=== PATIENT | male | born 1930 | race Caucasian/White ===

== ENCOUNTER 2017-08-29 14:25 | Observation (INO) | payer MEDICARE, OTHER ==
[2017-08-29] VITALS (7 sets, daily range): BP systolic 117–155; BP diastolic 51–68; PULSE 71–86; RESP 17–19; TEMP 97.6–98.1; O2SAT 91–99
[~2017-08-29] VITALS: Ht 182.9 cm; Wt 100.0 kg
[~2017-08-29 14:25] MED LIST: ASPI81TA82 PO; METO50TA PO; STOO100C PO
[2017-08-29] MEDS ORDERED: VENTAER INH (14:57)
[2017-08-29] MEDS ORDERED: FURO1TAB62 PO (14:57)
[2017-08-29] MEDS ORDERED: SODIUM CHLORIDE 0.9% FLUSH 10 ML FLUSH IVF PRN (15:00)
--- NOTE | 2017-08-29 15:13 | PD ---
HPI Chief Complaint: Edema Time Seen by Provider: 14:56 Travel History International Travel<30 days: No Contact w/Intl Traveler<30days: No Traveled to known affect area: No History of Present Illness HPI Patient sees Dr. Man is a primary care doctor and the learning and development administrator is Dr. CONCEPCION..... Patient comes in complaining of increased swelling to bilateral lower extremities as well as shortness of breath over the past 3 days or so but have not improved despite the fact that Dr. Man started him on Lasix. Patient denies any alleviating or aggravating factors. Patient denies any associated factors such as fever cough chest pain abdominal pain back pain nausea vomiting or diarrhea at this time. Allergies no known drug allergies Past medical and surgical history consistent with CABG, bovine aortic valve replacement, left inguinal hernia repair, AAA, congestive heart failure, PFSH Past Medical History AAA: Yes Cancer: Yes (BASAL CELL) Cardiovascular Problems: Yes (HX OF LEAKY AORTIC VALVE) Chemotherapy: No Congestive Heart Failure: Yes Diabetes: No Diminished Hearing: No Endocrine: No Gastrointestinal Disorders: Yes (GALLSTONES) Genitourinary: No Hepatitis: No Hiatal Hernia: No Hypertension: Yes Immune Disorder: No Kidney Stones: Yes Musculoskeletal: No Neurologic: No Psychiatric: No Respiratory: No Immunizations Current: Yes Radiation Therapy: No Tetanus Vaccination: < 5 Years Influenza Vaccination: No Past Surgical History Abdominal Aneurysm Repair: Yes Abdominal Surgery: Yes (LEFT INGUINAL HERNIA) Body Medical Devices: BOVINE AORTIC VALVE, STERNAL INFECTION Cardiac Surgery: Yes (AVR) Ear Surgery: No Eye Surgery: Yes (MARBELLA CATARACTS) Genitourinary Surgery: Yes (LITHOTRIPSY, STONES REMOVED) Gynecologic Surgery: No Oral Surgery: Yes (TONSILLECTOMY) Thoracic Surgery: Yes (DEBRIDED CHEST INFECTION, STERNAL WIRES OUT) Tonsillectomy: Yes Valve Replacement: Yes (BOVINE AORTIC VALVE REPLACEMENT) Other Surgery: Yes (HYDROCELE) Social History Alcohol Use: Yes (WINE DAILY) Tobacco Use: No (QUIT 30 + YEARS AGO) Substance Use: No Allergies-Medications (Allergen,Severity, Reaction): Coded Allergies: No Known Allergies (Unverified Adverse Reaction, Unknown, 08/29/17) Reported Meds & Prescriptions Reported Meds & Active Scripts Active Reported Ventolin Hfa 18 GM Inh (Albuterol Sulfate) 90 Mcg/Act Aer 2 Puff INH Q4-6H PRN Lasix (Furosemide) 20 Mg Tab 20 Mg PO DAILY Review of Systems Except as stated in HPI: all other systems reviewed are Neg General / Constitutional: No: Fever Eyes: No: Visual changes HENT: No: Headaches Cardiovascular: Positive: Edema Respiratory: Positive: Shortness of Breath Gastrointestinal: No: Abdominal Pain Genitourinary: No: Dysuria Musculoskeletal: No: Pain Skin: No Rash Neurologic: No: Weakness Psychiatric: No: Depression Endocrine: No: Polydipsia Hematologic/Lymphatic: No: Easy Bruising Physical Exam Narrative GENERAL: SKIN: Warm and dry. HEAD: Atraumatic. Normocephalic. EYES: Pupils equal and round. No scleral icterus. No injection or drainage. ENT: No nasal bleeding or discharge. Mucous membranes pink and moist. NECK: Trachea midline. No JVD. CARDIOVASCULAR: Regular rate and rhythm. Holosystolic murmur 3 out of 6 RESPIRATORY: No accessory muscle use. Patient has good tidal volume however he has bilateral wheezing GASTROINTESTINAL: Abdomen soft, non-tender, nondistended. MUSCULOSKELETAL: Extremities without clubbing, cyanosis, or edema. No obvious deformities. NEUROLOGICAL: Awake and alert. No obvious cranial nerve deficits. Motor grossly within normal limits. Five out of 5 muscle strength in the arms and legs. Normal speech. PSYCHIATRIC: Appropriate mood and affect; insight and judgment normal. Data Data Last Documented VS Vital Signs Date Time Temp Pulse Resp B/P (MAP) Pulse Ox O2 Delivery O2 Flow Rate FiO2 08/29/17 15:03 98 Room Air 08/29/17 15:02 79 19 08/29/17 14:27 97.6 Orders Orders Ckmb (Isoenzyme) Profile (08/29/17 14:56) Complete Blood Count With Diff (08/29/17 14:56) Comprehensive Metabolic Panel (08/29/17 14:56) Prothrombin Time / Inr (Pt) (08/29/17 14:56) Act Partial Throm Time (Ptt) (08/29/17 14:56) Troponin I (08/29/17 14:56) Lipase (08/29/17 14:56) Chest, Single Ap (08/29/17 14:56) Ecg Monitoring (08/29/17 14:56) Iv Access Insert/Monitor (08/29/17 14:56) Oximetry (08/29/17 14:56) Oxygen Administration (08/29/17 14:56) Sodium Chloride 0.9% Flush (Ns Flush) (08/29/17 15:00) Furosemide Inj (Lasix Inj) (08/29/17 15:15) Methylprednisolone So Succ Inj (Solumedr (08/29/17 15:15) Albuterol-Ipratropium Neb (Duoneb Neb) (08/29/17 15:15) CKMB (08/29/17 15:05) CKMB% (08/29/17 15:05) Aspirin Chew (Aspirin Chew) (08/29/17 16:15) Nitroglycerin 2% Oint (Nitroglycerin 2% (08/29/17 16:15) Enoxaparin Inj (Lovenox Inj) (08/29/17 16:15) B-Type Natriuretic Peptide (08/29/17 16:26) Labs Laboratory Tests Test 08/29/17 15:05 White Blood Count 3.8 TH/MM3 Red Blood Count 4.42 MIL/MM3 Hemoglobin 14.0 GM/DL Hematocrit 40.5 % Mean Corpuscular Volume 91.6 FL Mean Corpuscular Hemoglobin 31.6 PG Mean Corpuscular Hemoglobin Concent 34.5 % Red Cell Distribution Width 14.0 % Platelet Count 114 TH/MM3 Mean Platelet Volume 9.7 FL Neutrophils (%) (Auto) 60.5 % Lymphocytes (%) (Auto) 23.8 % Monocytes (%) (Auto) 10.4 % Eosinophils (%) (Auto) 4.6 % Basophils (%) (Auto) 0.7 % Neutrophils # (Auto) 2.3 TH/MM3 Lymphocytes # (Auto) 0.9 TH/MM3 Monocytes # (Auto) 0.4 TH/MM3 Eosinophils # (Auto) 0.2 TH/MM3 Basophils # (Auto) 0.0 TH/MM3 CBC Comment DIFF FINAL Differential Comment Prothrombin Time 10.0 SEC Prothromb Time International Ratio 1.0 RATIO Activated Partial Thromboplast Time 28.2 SEC Blood Urea Nitrogen 33 MG/DL Creatinine 1.44 MG/DL Random Glucose 79 MG/DL Total Protein 7.6 GM/DL Albumin 3.4 GM/DL Calcium Level 8.5 MG/DL Alkaline Phosphatase 67 U/L Aspartate Amino Transf (AST/SGOT) 37 U/L Alanine Aminotransferase (ALT/SGPT) 21 U/L Total Bilirubin 0.4 MG/DL Sodium Level 138 MEQ/L Potassium Level 4.3 MEQ/L Chloride Level 103 MEQ/L Carbon Dioxide Level 29.0 MEQ/L Anion Gap 6 MEQ/L Estimat Glomerular Filtration Rate 47 ML/MIN Total Creatine Kinase 169 U/L Creatine Kinase MB 2.7 NG/ML Troponin I 0.19 NG/ML Lipase 192 U/L MDM Medical Decision Making Medical Screen Exam Complete: Yes Emergency Medical Condition: Yes Medical Record Reviewed: Yes Interpretation(s) EKG: Shows a ectopic rhythm at 76 rate, normal intervals, no ST elevation pattern noted will repeat EKG in the event that Leads are reversed. Differential Diagnosis Possible pulmonary edema due to CHF versus kidney failure versus liver failure Narrative Course The patient's coagulation profile is within normal limits, CBC is normal and does not show any evidence of leukocytosis or anemia. CMP shows a renal insufficiency creatinine 1.44 and decreased GFR of 47, however patient's liver functions were within normal limits, however the troponin is 0.19 which is elevated and abnormal. Patient will be admitted for further evaluation of this elevation of troponin Critical Care Narrative CRITICAL CARE NOTE: With evaluation of the patient, labs, EKG, receipt of radiologic studies, administration of medications, reevaluation the patient and discussion of the patient with the admitting physicians, the total critical care time was [30] minutes. Time to perform other separately billable procedures was not included in the critical care time. Diagnosis Primary Impression: BLE PERIPHERAL EDEMA Additional Impression: NONSTEMI Admitting Information Admitting Physician Requests: Observation Barry Piper MD Aug 29, 2017 15:13
[2017-08-29] MEDS ORDERED: FUROSEMIDE 40 MG/4 ML VIAL IVP ONE (15:15)
[2017-08-29] MEDS ORDERED: methylPREDNISolone SOD SUCC 125 MG/2 ML VIAL IV PUSH ONE (15:15)
[2017-08-29] MEDS: RESP: ALBUTEROL 2.5 MG/IPRATROPIUM 0.5 MG NEB (SCH) INH (15:30)
[2017-08-29 15:35] LABS: AUTOMATED NEUTROPHIL # 2.3 TH/MM3 (1.8-7.7); BASOPHIL % 0.7 % (0.0-2.0); EOSINOPHIL # 0.2 TH/MM3 (0-0.4); EOSINOPHIL % 4.6 % (0.0-4.0); HEMATOCRIT 40.5 % (39.0-51.0); LYMPH % 23.8 % (9.0-44.0); LYMPHOCYTE # 0.9 TH/MM3 (1.0-4.8); MEAN CELL VOLUME 91.6 FL (80.0-100.0); MEAN CORPUSCULAR HEMOGLOBIN 31.6 PG (27.0-34.0); MEAN CORPUSCULAR HGB CONC 34.5 % (32.0-36.0); MEAN PLATELET VOLUME 9.7 FL (7.0-11.0); MONO % 10.4 % (0.0-8.0); MONOCYTE # 0.4 TH/MM3 (0-0.9); NEUT % 60.5 % (16.0-70.0); PLATELET COUNT 114 TH/MM3 (150-450); RED BLOOD COUNT 4.42 MIL/MM3 (4.50-5.90); WHITE BLOOD COUNT 3.8 TH/MM3 (4.0-11.0)
[2017-08-29 15:58] LABS: ALBUMIN 3.4 GM/DL (3.4-5.0); ALT (GPT) 21 U/L (12-78); AST (GOT) 37 U/L (15-37); BLOOD UREA NITROGEN 33 MG/DL (7-18); CALCIUM 8.5 MG/DL (8.5-10.1); CHLORIDE 103 MEQ/L (98-107); CREATININE 1.44 MG/DL (0.60-1.30); GLOMERULAR FILTRATION RATE 47 ML/MIN (>89); GLUCOSE,RANDOM 79 MG/DL (74-106); SODIUM (NA) 138 MEQ/L (136-145)
[2017-08-29 16:02] LABS: ALKALINE PHOSPHATASE 67 U/L (45-117); TOTAL BILIRUBIN ADULT 0.4 MG/DL (0.2-1.0); TOTAL PROTEIN 7.6 GM/DL (6.4-8.2); TROPONIN I 0.19 NG/ML (0.02-0.05)
[2017-08-29] MEDS ORDERED: ENOXAPARIN SODIUM 80 MG/0.8 ML SYRINGE SQ ONE (16:15)
[2017-08-29] MEDS ORDERED: NITROGLYCERIN 2% OINT 1 GM PACKET TOP ONE (16:15)
[2017-08-29] MEDS ORDERED: ASPIRIN 81 MG CHEW TAB PO ONE (16:15)
--- NOTE | 2017-08-29 16:26 | RADRPT ---
EXAM DATE/TIME: 08/29/2017 16:02 [facility] COMPARISON: No previous studies available for comparison. INDICATIONS : Chest pain and shortness of breath. MEDICAL HISTORY : Aneurysm, abdominal. Hypertension Leaky valve, Congestive heart failure. SURGICAL HISTORY : Tonsillectomy. Aortic valve replaced. ENCOUNTER: Initial ACUITY: 2 days PAIN SCORE: 6/10 LOCATION: Bilateral chest FINDINGS: A single view of the chest demonstrates the lungs to be symmetrically aerated without evidence of mas s, infiltrate or effusion. The cardiomediastinal contours are unremarkable. Osseous structures are intact. CONCLUSION: No acute disease. Zacarias Brennan MD on August 29, 2017 at 16:20 Board Certified Radiologist. This report was verified electronically.
--- NOTE | 2017-08-29 17:05 | HHI.HP ---
[facility] Service Family Medicine Primary Care Physician Dung Man MD Admission Diagnosis DYSPNEA, NONSTEMI Diagnoses: International Travel<30 Days: No Contact w/Intl Traveler<30days: No Known Affected Area: No History of Present Illness 87 yr old w/ CABG, bovine aortic valve replacement, CHF, presents with 2 week hx of SOB. History limited, patient is a poor historian. Patient states that he was on a cruise last week. While carrying a heavy package up a ramp, he felt a burning, substernal chest pain accompanied with SOB. He could not lay down after the event and he he had to sit up to sleep. He reports that he has had orthopnea over the last 2 weeks and leg swelling in the past 3 days. He states that he normally has chronic swelling in his right leg, but has had new swelling in his left leg. He went to go see his PCP on Friday. He was started on 20mg lasix daily w/o improvement in his symptoms. He recently had a CXR ordered by PCP done yesterday. He was called this morning with the results of the CXR, nurse told him that he had some congestion and needed to go immediately to the ER. His dropped him off. He endorses dry cough. He denies fever, active CP, abdominal pain and N/V. Nitrocellulose Maker: Dr. Back (Erika Echols MD R1) Review of Systems Constitutional: DENIES: Fever, Weight loss, Chills, Change in appetite Eyes: DENIES: Blurred vision Ears, nose, mouth, throat: DENIES: Throat pain, Ear Pain, Running Nose Respiratory: COMPLAINS OF: Shortness of breath, DENIES: Cough Cardiovascular: COMPLAINS OF: Dyspnea on Exertion, Lower Extremity Edema, Orthopnea, DENIES: Chest pain, Palpitations Gastrointestinal: DENIES: Abdominal pain, Bloody stools, Diarrhea, Nausea, Vomiting Genitourinary: DENIES: Dysuria Musculoskeletal: DENIES: Muscle aches Integumentary: DENIES: Rash Hematologic/lymphatic: DENIES: Lymphadenopathy Neurologic: DENIES: Headache (Erika Echols MD R1) Past Family Social History Past Medical History Bovine aortic valve replacement 2010 hx of kidney stones hx of gallstones HTN history of Afib History of CHF History of cataracts hernia and hydrocele repair Past Surgical History cardiac cath 2010 Inguinal hernia repair (Erika Echols MD R1) Allergies: Coded Allergies: No Known Allergies (Unverified Allergy, Unknown, 08/29/17) Family History Mom 65 w/ unknown cancer Dad 93 due to "old age" Social History Live with in [place], retired. Former smoker, quit 35 years ago, 16-50s, 1-3ppds Drink occasionally Denies illicit drug use (Erika Echols MD R1) Physical Exam Vital Signs Vital Signs Date Time Temp Pulse Resp B/P (MAP) Pulse Ox O2 Delivery O2 Flow Rate FiO2 08/29/17 15:03 98 Room Air 08/29/17 15:02 79 19 145/63 (90) 98 Room Air 08/29/17 14:27 97.6 86 18 155/66 (95) 99 Physical Exam GENERAL: elderly male, sitting up in bed, in NAD SKIN: No rashes, ecchymoses or lesions. Cool and dry. HEAD: Atraumatic. Normocephalic. No temporal or scalp tenderness. EYES: Pupils equal round and reactive. Extraocular motions intact. No scleral icterus. No injection or drainage. ENT: Nose without bleeding, purulent drainage or septal hematoma. Throat without erythema, tonsillar hypertrophy or exudate. Uvula midline. Airway patent. NECK: Trachea midline. No JVD or lymphadenopathy. Supple, nontender, no meningeal signs. CARDIOVASCULAR: Regular rate and rhythm without murmurs, gallops, or rubs. RESPIRATORY: fine crackles present on b/l bases GASTROINTESTINAL: Abdomen soft, non-tender, nondistended. No hepato-splenomegaly , or palpable masses. No guarding. MUSCULOSKELETAL: 2+ pitting edema up to knees b/l NEUROLOGICAL: Awake, alert, oriented x 3. Laboratory Laboratory Tests Test 08/29/17 15:05 White Blood Count 3.8 Red Blood Count 4.42 Hemoglobin 14.0 Hematocrit 40.5 Mean Corpuscular Volume 91.6 Mean Corpuscular Hemoglobin 31.6 Mean Corpuscular Hemoglobin Concent 34.5 Red Cell Distribution Width 14.0 Platelet Count 114 Mean Platelet Volume 9.7 Neutrophils (%) (Auto) 60.5 Lymphocytes (%) (Auto) 23.8 Monocytes (%) (Auto) 10.4 Eosinophils (%) (Auto) 4.6 Basophils (%) (Auto) 0.7 Neutrophils # (Auto) 2.3 Lymphocytes # (Auto) 0.9 Monocytes # (Auto) 0.4 Eosinophils # (Auto) 0.2 Basophils # (Auto) 0.0 CBC Comment DIFF FINAL Differential Comment Prothrombin Time 10.0 Prothromb Time International Ratio 1.0 Activated Partial Thromboplast Time 28.2 Blood Urea Nitrogen 33 Creatinine 1.44 Random Glucose 79 Total Protein 7.6 Albumin 3.4 Calcium Level 8.5 Alkaline Phosphatase 67 Aspartate Amino Transf (AST/SGOT) 37 Alanine Aminotransferase (ALT/SGPT) 21 Total Bilirubin 0.4 Sodium Level 138 Potassium Level 4.3 Chloride Level 103 Carbon Dioxide Level 29.0 Anion Gap 6 Estimat Glomerular Filtration Rate 47 Total Creatine Kinase 169 Creatine Kinase MB 2.7 Troponin I 0.19 Lipase 192 (Erika Echols MD R1) Result Diagram: 08/29/17 1505 08/29/17 1505 Caprini VTE Risk Assessment Caprini VTE Risk Assessment: Mod/High Risk (score >= 2) Caprini Risk Assessment Model Point Value = 1 Point Value = 2 Point Value = 3 Point Value = 5 Age 41-60 Minor surgery BMI > 25 kg/m2 Swollen legs Varicose veins or History of unexplained or recurrent spontaneous Oral contraceptives or hormone replacement Sepsis (< 1 month) Serious lung disease, including pneumonia (< 1 month) Abnormal pulmonary function Acute myocardial infarction Congestive heart failure (< 1 month) History of inflammatory bowel disease Medical patient at bed rest Age 61-74 Arthroscopic surgery Major open surgery (> 45 min) Laparoscopic surgery (> 45 min) Malignancy Confined to bed (> 72 hours) Immobilizing plaster cast Central venous access Age >= 75 History of VTE Family history of VTE Factor V Leiden Prothrombin [id number] Lupus anticoagulant Anticardiolipin antibodies Elevated serum homocysteine Heparin-induced thrombocytopenia Other congenital or acquired thrombophilia Stroke (< 1 month) Elective arthroplasty Hip, pelvis, or leg fracture Acute spinal cord injury (< 1 month) Prophylaxis Regimen Total Risk Factor Score Risk Level Prophylaxis Regimen 0-1 Low Early ambulation 2 Moderate Order ONE of the following: *Sequential Compression Device (SCD) *Heparin 5000 units SQ BID 3-4 Higher Order ONE of the following medications: *Heparin 5000 units SQ TID *Enoxaparin/Lovenox 40 mg SQ daily (WT < 150 kg, CrCl > 30 mL/min) *Enoxaparin/Lovenox 30 mg SQ daily (WT < 150 kg, CrCl > 10-29 mL/min) *Enoxaparin/Lovenox 30 mg SQ BID (WT < 150 kg, CrCl > 30 mL/min) AND/OR *Sequential Compression Device (SCD) 5 or more Highest Order ONE of the following medications: *Heparin 5000 units SQ TID (Preferred with Epidurals) *Enoxaparin/Lovenox 40 mg SQ daily (WT < 150 kg, CrCl > 30 mL/min) *Enoxaparin/Lovenox 30 mg SQ daily (WT < 150 kg, CrCl > 10-29 mL/min) *Enoxaparin/Lovenox 30 mg SQ BID (WT < 150 kg, CrCl > 30 mL/min) AND *Sequential Compression Device (SCD) (Erika Echols MD R1) Assessment and Plan Assessment and Plan 87 yr old with PMHx of HTN, CHF, CABG, and bovine aortic valve replacement presents with SOB and b/l lower extremity edema. Code Status Full Code Discussed Condition With Dr. Hopkins (Erika Echols MD R1) Attending Attestation THIS CASE WAS DISCUSSED WITH THE RESIDENT PHYSICIAN. I HAVE REVIEWED THE RECORD AND AGREE WITH THE ABOVE NOTE AND PLAN OF CARE WAS DISCUSSED. I HAVE AUTHORIZED THE ORDER FOR PLACEMENT IN OUT-PATIENT OBSERVATION STATUS. (Ramon Graves MD) Problem List: (1) SOB (shortness of breath) ICD Codes: R06.02 - Shortness of breath Plan: Acute on chronic CHF exacerbation vs NSTEMI BNP elevated at 404 Troponin elevated at 0.19 EKG demonstrated sinus rhythm, no ST changes, inverted T waves in AVR and AVL CXR no acute disease Lipid profile pending Echo 2D doppler ordered Cardiology consulted, appreciate recs Continue to trend troponins and EKGs Continue to monitor on cardiac telemetry NPO except meds Due to patient's cardiac history and elevated troponins, placed on heparin for possible catheterization Aspirin 81 mg PO daily Metoprolol Tartrate 25mg PO q12hr Morphine 2mg IV Push q30m PRN chest pain Nitroglycerin 0.4 mg SL q5m PRN chest pain (2) Elevated serum creatinine ICD Codes: R79.89 - Other specified abnormal findings of blood chemistry Plan: Cr elevated at 1.44, baseline unknown No fluids at this time due to edema and SOB Continue to monitor (3) HTN (hypertension) ICD Codes: I10 - Essential (primary) hypertension Plan: Metoprolol Tartrate 25mg PO q12hr (4) Nutrition, metabolism, and development symptoms ICD Codes: R63.8 - Other symptoms and signs concerning food and fluid intake Plan: Diet: NPO except meds Fluids: not indicated at this time vitals q4h, monitor I & Os, cardiac telemetry (Erika Echols MD R1) Erika Echols MD R1 Aug 29, 2017 17:05 Ramon Graves MD Aug 30, 2017 10:17
[2017-08-29] MEDS ORDERED: SODIUM CHLORIDE 0.9% FLUSH 10 ML FLUSH IV FLUSH PRN (17:15)
[2017-08-29] MEDS ORDERED: NITROGLYCERIN 0.4 MG SL 25 TABS/BTL SL PRN (17:15)
[2017-08-29] MEDS ORDERED: MORPHINE SULFATE 4 MG/ML INJ IV PUSH PRN (17:15)
[2017-08-29] MEDS ORDERED: HEPARIN SODIUM - SQ 10,000 UNITS/ML VIAL SQ SCH (18:00)
[2017-08-29] MEDS ORDERED: HEPARIN SODIUM - IV 10,000 UNITS/10 ML VIAL IV PUSH ONE (18:30)
[2017-08-29] MEDS: METOPROLOL TARTRATE 25 MG TAB PO SCH (20:46)
[2017-08-29] MEDS: SODIUM CHLORIDE 0.9% FLUSH 10 ML FLUSH IV FLUSH SCH (20:46)
[2017-08-29] MEDS: HEPARIN-D5W 25,000 U/250 ML 250 ML IV PRN (20:47)
[2017-08-29 22:11] LABS: ALBUMIN 3.3 GM/DL (3.4-5.0); AST (GOT) 32 U/L (15-37); BLOOD UREA NITROGEN 31 MG/DL (7-18); CALCIUM 8.6 MG/DL (8.5-10.1); CHLORIDE 101 MEQ/L (98-107); CREATININE 1.55 MG/DL (0.60-1.30); GLOMERULAR FILTRATION RATE 43 ML/MIN (>89); GLUCOSE,RANDOM 179 MG/DL (74-106); SODIUM (NA) 136 MEQ/L (136-145)
[2017-08-29 22:12] LABS: ALT (GPT) 21 U/L (12-78)
[2017-08-29 22:15] LABS: ALKALINE PHOSPHATASE 65 U/L (45-117); TOTAL BILIRUBIN ADULT 0.3 MG/DL (0.2-1.0); TOTAL PROTEIN 7.1 GM/DL (6.4-8.2); TROPONIN I 0.18 NG/ML (0.02-0.05)
[2017-08-29] MEDS: NITROGLYCERIN 2% OINT 1 GM PACKET TOPICAL SCH (22:59)
[2017-08-30] VITALS (11 sets, daily range): BP systolic 115–133; BP diastolic 56–64; PULSE 54–72; RESP 17–22; TEMP 97.4–97.9; O2SAT 94–99
[2017-08-30] MEDS ORDERED: HEPARIN SODIUM - IV 10,000 UNITS/10 ML VIAL IV PUSH PRN ×2 (00:30)
[2017-08-30 02:31] LABS: AUTOMATED NEUTROPHIL # 1.3 TH/MM3 (1.8-7.7); BASOPHIL % 0.6 % (0.0-2.0); EOSINOPHIL % 0.2 % (0.0-4.0); HEMATOCRIT 38.8 % (39.0-51.0); HEMOGLOBIN 13.2 GM/DL (13.0-17.0); LYMPH % 25.5 % (9.0-44.0); LYMPHOCYTE # 0.5 TH/MM3 (1.0-4.8); MEAN CELL VOLUME 91.1 FL (80.0-100.0); MEAN CORPUSCULAR HEMOGLOBIN 30.9 PG (27.0-34.0); MEAN CORPUSCULAR HGB CONC 33.9 % (32.0-36.0); MEAN PLATELET VOLUME 9.3 FL (7.0-11.0); MONOCYTE # 0.1 TH/MM3 (0-0.9); NEUT % 68.7 % (16.0-70.0); PLATELET COUNT 110 TH/MM3 (150-450); RED BLOOD COUNT 4.27 MIL/MM3 (4.50-5.90); RED CELL DISTRIBUTION WIDTH 13.8 % (11.6-17.2)
[2017-08-30 03:31] LABS: ALT (GPT) 24 U/L (12-78); AST (GOT) 36 U/L (15-37); BICARBONATE 26.7 MEQ/L (21.0-32.0); BLOOD UREA NITROGEN 32 MG/DL (7-18); CHLORIDE 102 MEQ/L (98-107); CHOLESTEROL 144 MG/DL (120-200); CREATININE 1.27 MG/DL (0.60-1.30); GLOMERULAR FILTRATION RATE 54 ML/MIN (>89); GLUCOSE,RANDOM 139 MG/DL (74-106); SODIUM (NA) 136 MEQ/L (136-145); TRIGLYCERIDES 37 MG/DL (42-150)
[2017-08-30 03:35] LABS: ALKALINE PHOSPHATASE 62 U/L (45-117); CHOLESTEROL/ HDL RATIO 2.88 RATIO; HDL CHOLESTEROL 49.9 MG/DL (40.0-60.0); LDL CHOLESTEROL 87 MG/DL (0-99); TOTAL BILIRUBIN ADULT 0.3 MG/DL (0.2-1.0); TOTAL PROTEIN 7.1 GM/DL (6.4-8.2); TROPONIN I 0.14 NG/ML (0.02-0.05)
[2017-08-30] MEDS: NITROGLYCERIN 2% OINT 1 GM PACKET TOPICAL SCH ×4 (06:00→17:48)
[2017-08-30] MEDS: RESP: ALBUTEROL 2.5 MG/3 ML NEB (SCH) INH ×3 (08:47→23:36)
[2017-08-30] MEDS: SODIUM CHLORIDE 0.9% FLUSH 10 ML FLUSH IV FLUSH SCH ×2 (09:45→22:19)
[2017-08-30] MEDS: FUROSEMIDE 40 MG/4 ML VIAL IV PUSH SCH ×2 (09:45→18:14)
[2017-08-30] MEDS: METOPROLOL TARTRATE 25 MG TAB PO SCH ×2 (09:46→22:19)
[2017-08-30] MEDS: ASPIRIN EC 81 MG TABEC PO SCH (09:46)
--- NOTE | 2017-08-30 10:14 | HHI.HP ---
[facility] Service Family Medicine Primary Care Physician Dung Man MD Admission Diagnosis DYSPNEA, NONSTEMI Diagnoses: (1) SOB (shortness of breath) (2) Elevated serum creatinine (3) HTN (hypertension) (4) Nutrition, metabolism, and development symptoms International Travel<30 Days: No Contact w/Intl Traveler<30days: No Known Affected Area: No History of Present Illness Patient remains afebrile and normotensive, with no acute events overnight and states that he feels relatively well this morning, however still feels short of breath and unable to take a deep breath. He did receive a dose of Lasix overnight and states that he urinated out "a jug" and that he feels that his lower extremity edema has improved. He denies any overt chest pain or chest pressure but endorses continued shortness of breath. He denies diaphoresis. He denies nausea or vomiting. He denies fevers or chills. In summary, this is an 87-year-old male with a history of a CABG and bovine aortic valve replacement as well as CHF who presents to the emergency department with increasing shortness of breath. This is been going on and been progressive for 1 week after feeling a self resolving episode of substernal chest discomfort. He has had progressive orthopnea over the last 2 weeks as well as bilateral leg swelling for the last 3 days. Post Graduate Intern: Dr. Back Past Family Social History Past Medical History Bovine aortic valve replacement 2010 hx of kidney stones hx of gallstones HTN history of Afib History of CHF History of cataracts hernia and hydrocele repair Past Surgical History cardiac cath 2010 Inguinal hernia repair Allergies: Coded Allergies: No Known Allergies (Unverified Allergy, Unknown, 08/29/17) Family History Mom 65 w/ unknown cancer Dad 93 due to "old age Social History Live with in [place], retired. Former smoker, quit 35 years ago, 16-50s, 1-3ppds Drink occasionally Denies illicit drug use Physical Exam Vital Signs Vital Signs Date Time Temp Pulse Resp B/P (MAP) Pulse Ox O2 Delivery O2 Flow Rate FiO2 08/30/17 08:08 97.4 63 22 133/64 (87) 94 08/30/17 04:00 54 08/30/17 00:00 60 08/29/17 21:05 71 08/29/17 20:41 98.1 72 18 120/51 (74) 91 08/29/17 18:33 78 17 117/54 (75) 97 08/29/17 17:14 78 17 144/65 (91) 97 Room Air 08/29/17 15:03 98 Room Air 08/29/17 15:02 79 19 145/63 (90) 98 Room Air 08/29/17 14:27 97.6 86 18 155/66 (95) 99 Physical Exam GENERAL: elderly male, sitting up in bed, in NAD SKIN: Anterior chest with vertical sternal incision that is well-healed except for a draining sinus tract, drainages bloody with some mild serous fluid HEAD: Atraumatic. Normocephalic. No temporal or scalp tenderness. EYES: Pupils equal round and reactive. Extraocular motions intact. No scleral icterus. No injection or drainage. ENT: Nose without bleeding, purulent drainage or septal hematoma. Throat without erythema, tonsillar hypertrophy or exudate. Uvula midline. Airway patent. NECK: Trachea midline. No JVD or lymphadenopathy. Supple, nontender, no meningeal signs. CARDIOVASCULAR: Regular rate and rhythm with 2/6 systolic murmur RESPIRATORY: Diffuse expiratory wheezes with fine crackles on bilateral basis GASTROINTESTINAL: Abdomen soft, non-tender, nondistended. No hepato-splenomegaly , or palpable masses. No guarding. MUSCULOSKELETAL: 2+ pitting edema up to mid tibia bilaterally. NEUROLOGICAL: Awake, alert, oriented x 3. Laboratory Laboratory Tests Test 08/29/17 15:05 08/29/17 21:25 08/30/17 02:21 08/30/17 09:19 White Blood Count 3.8 2.0 Red Blood Count 4.42 4.27 Hemoglobin 14.0 13.2 Hematocrit 40.5 38.8 Mean Corpuscular Volume 91.6 91.1 Mean Corpuscular Hemoglobin 31.6 30.9 Mean Corpuscular Hemoglobin Concent 34.5 33.9 Red Cell Distribution Width 14.0 13.8 Platelet Count 114 110 Mean Platelet Volume 9.7 9.3 Neutrophils (%) (Auto) 60.5 68.7 Lymphocytes (%) (Auto) 23.8 25.5 Monocytes (%) (Auto) 10.4 5.0 Eosinophils (%) (Auto) 4.6 0.2 Basophils (%) (Auto) 0.7 0.6 Neutrophils # (Auto) 2.3 1.3 Lymphocytes # (Auto) 0.9 0.5 Monocytes # (Auto) 0.4 0.1 Eosinophils # (Auto) 0.2 0.0 Basophils # (Auto) 0.0 0.0 CBC Comment DIFF FINAL DIFF FINAL Differential Comment Prothrombin Time 10.0 Prothromb Time International Ratio 1.0 Activated Partial Thromboplast Time 28.2 66.7 Blood Urea Nitrogen 33 31 32 Creatinine 1.44 1.55 1.27 Random Glucose 79 179 139 Total Protein 7.6 7.1 7.1 Albumin 3.4 3.3 3.0 Calcium Level 8.5 8.6 8.0 Alkaline Phosphatase 67 65 62 Aspartate Amino Transf (AST/SGOT) 37 32 36 Alanine Aminotransferase (ALT/SGPT) 21 21 24 Total Bilirubin 0.4 0.3 0.3 Sodium Level 138 136 136 Potassium Level 4.3 4.1 4.6 Chloride Level 103 101 102 Carbon Dioxide Level 29.0 30.0 26.7 Anion Gap 6 5 7 Estimat Glomerular Filtration Rate 47 43 54 Total Creatine Kinase 169 178 212 Creatine Kinase MB 2.7 2.5 3.6 Troponin I 0.19 0.18 0.14 B-Type Natriuretic Peptide 404 Lipase 192 Triglycerides Level 37 Cholesterol Level 144 LDL Cholesterol 87 HDL Cholesterol 49.9 Cholesterol/HDL Ratio 2.88 Result Diagram: 08/30/1722008/30/17220 Imaging Last 48 hours Impressions Chest X-Ray 08/29/17 1456 Signed Impressions: Service Date/Time: Tuesday, August 29, 2017 16:02 - CONCLUSION: No acute disease. Zacarias Brennan MD Caprini VTE Risk Assessment Caprini VTE Risk Assessment: Mod/High Risk (score >= 2) Caprini Risk Assessment Model Point Value = 1 Point Value = 2 Point Value = 3 Point Value = 5 Age 41-60 Minor surgery BMI > 25 kg/m2 Swollen legs Varicose veins or History of unexplained or recurrent spontaneous Oral contraceptives or hormone replacement Sepsis (< 1 month) Serious lung disease, including pneumonia (< 1 month) Abnormal pulmonary function Acute myocardial infarction Congestive heart failure (< 1 month) History of inflammatory bowel disease Medical patient at bed rest Age 61-74 Arthroscopic surgery Major open surgery (> 45 min) Laparoscopic surgery (> 45 min) Malignancy Confined to bed (> 72 hours) Immobilizing plaster cast Central venous access Age >= 75 History of VTE Family history of VTE Factor V Leiden Prothrombin [id number] Lupus anticoagulant Anticardiolipin antibodies Elevated serum homocysteine Heparin-induced thrombocytopenia Other congenital or acquired thrombophilia Stroke (< 1 month) Elective arthroplasty Hip, pelvis, or leg fracture Acute spinal cord injury (< 1 month) Prophylaxis Regimen Total Risk Factor Score Risk Level Prophylaxis Regimen 0-1 Low Early ambulation 2 Moderate Order ONE of the following: *Sequential Compression Device (SCD) *Heparin 5000 units SQ BID 3-4 Higher Order ONE of the following medications: *Heparin 5000 units SQ TID *Enoxaparin/Lovenox 40 mg SQ daily (WT < 150 kg, CrCl > 30 mL/min) *Enoxaparin/Lovenox 30 mg SQ daily (WT < 150 kg, CrCl > 10-29 mL/min) *Enoxaparin/Lovenox 30 mg SQ BID (WT < 150 kg, CrCl > 30 mL/min) AND/OR *Sequential Compression Device (SCD) 5 or more Highest Order ONE of the following medications: *Heparin 5000 units SQ TID (Preferred with Epidurals) *Enoxaparin/Lovenox 40 mg SQ daily (WT < 150 kg, CrCl > 30 mL/min) *Enoxaparin/Lovenox 30 mg SQ daily (WT < 150 kg, CrCl > 10-29 mL/min) *Enoxaparin/Lovenox 30 mg SQ BID (WT < 150 kg, CrCl > 30 mL/min) AND *Sequential Compression Device (SCD) Assessment and Plan Assessment and Plan 87 yr old with PMHx of HTN, CHF, CABG, and bovine aortic valve replacement presents with SOB and b/l lower extremity edema. Problem List: (1) Acute exacerbation of CHF (congestive heart failure) ICD Codes: I50.9 - Heart failure, unspecified Status: Acute Plan: Acute on chronic CHF exacerbation vs NSTEMI Troponins elevated at 0.19, 0.18, and 0.14 respectively EKG with ectopic atrial beats, however no T-wave inversions or ST changes -Heparin drip continued overnight - Cardiology consult pending -BNP elevated at 404 Diuresed with Lasix 40 mg IV 1 with good urine output per patient -Continue Lasix 40 mg IV twice daily -Order written for strict I's and O's -Daily weights -Fluid restriction to 1.5 L and low-salt diet Echo 2D doppler ordered Continue to monitor on cardiac telemetry Aspirin 81 mg PO daily Metoprolol Tartrate 25mg PO q12hr Morphine 2mg IV Push q30m PRN chest pain Nitroglycerin 0.4 mg SL q5m PRN chest pain Breathing treatments with albuterol scheduled (2) Elevated serum creatinine ICD Codes: R79.89 - Other specified abnormal findings of blood chemistry Plan: Cr elevated at 1.44, baseline unknown No fluids at this time due to edema and SOB Continue to monitor (3) Open wound of chest wall with complication ICD Codes: S21.109A - Open wound of chest wall with complication Status: Acute Plan: Appears to be a fistula or draining tract from previous open heart surgery -Patient states that this has been there for years and he has been evaluated for this several times We will have wound management see him for proper dressing (4) HTN (hypertension) ICD Codes: I10 - Essential (primary) hypertension Plan: Metoprolol Tartrate 25mg PO q12hr (5) Nutrition, metabolism, and development symptoms ICD Codes: R63.8 - Other symptoms and signs concerning food and fluid intake Plan: Diet: NPO except meds Fluids: not indicated at this time vitals q4h, monitor I & Os, cardiac telemetry Problem Qualifiers (1) Acute exacerbation of CHF (congestive heart failure): Qualified Codes: I50.9 - Heart failure, unspecified (2) Open wound of chest wall with complication: Qualified Codes: S21.109S - Unspecified open wound of unspecified front wall of thorax without penetration into thoracic cavity, Ramon Wallace MD Aug 30, 2017 10:14
[2017-08-30] MEDS: RESP: ALBUTEROL 2.5 MG/IPRATROPIUM 0.5 MG NEB (SCH) INH ×2 (12:02→19:48)
--- NOTE | 2017-08-30 13:03 | MB ---
cc: ESTER WOODARD HUMAYUN A. M.D. DATE OF CONSULTATION: 08/30/2017. REASON FOR CONSULTATION: Asked to evaluate patient with congestive heart failure. PATIENT'S SENIOUR INSIGHT MANAGER: Dr. Back. HISTORY OF PRESENT ILLNESS: Vineet Cook is a pleasant 87-year-old gentleman with past medical history significant for status post bioprosthetic aortic valve replacement 2010, hypertension, paroxysmal atrial fibrillation. He reports having progressive shortness of breath over the past two weeks. He was on a cruise 1-1/2 weeks ago and noted progressive lower extremity swelling. He also noted increasing shortness of breath and dyspnea on exertion after climbing ramps to his floor. During the cruise, he had noted inability to lay flat consistent with orthopnea and paroxysmal nocturnal dyspnea. He had mild chest discomfort that resolved with rest. Several days prior to admission, he had noted increasing shortness of breath with his daily activities prompting emergency room evaluation. In the emergency room, he was noted to have significant lower extremity edema and a chest x-ray showed congestive heart failure prompting admission. MEDICATIONS: Reviewed and noted in the MAR. PAST MEDICAL HISTORY: His past medical history is as above: 1. Status post bioprosthetic aortic valve replacement in 2010. 2. He reports no bypass. 3. He has chronic sternal wound discharge since 2012. 4. History of nephrolithiasis. 5. Cholelithiasis. 6. Hypertension. 7. Paroxysmal atrial fibrillation. PAST SURGICAL HISTORY: 1. Status post inguinal hernia repair. 2. Hydrocele repair. 3. Cataract extractions. ALLERGIES: NO KNOWN DRUG ALLERGIES. SOCIAL HISTORY: He is . He stopped smoking about 35 years ago. He drinks alcohol socially. No illicit drug use. FAMILY HISTORY: Mother at 65 years of age of cancer. The father of natural causes at 93 years of age. REVIEW OF SYSTEMS: Review of systems as above. Twelve-point review of systems reviewed and noted. He has had progressive lower extremity swelling, dyspnea on exertion and shortness of breath. He denies fevers, chills, cough and sputum production. No recent gastrointestinal and genitourinary symptoms. PHYSICAL EXAMINATION: VITAL SIGNS: Temperature 98.1, pulse 78, respirations 17, blood pressure 117/54, 02 saturation 97%. HEAD, EYES, EARS, NOSE, THROAT: He is anicteric. Pupils equal, round and reactive to light and accommodation. No xanthelasma. NECK: Flat JVDs. LUNGS: With bibasilar crackles. HEART: Regular rate and rhythm. 2/6 systolic murmur left upper sternal border. ABDOMEN: Abdomen soft and nontender. EXTREMITIES: With 2+ pitting edema. EKGS: EKG shows sinus rhythm, heart rate 58 beats per minute, normal axis and intervals, S-T-T segments within normal limits. LABORATORY DATA: WBCs 2.0, hemoglobin 13.2, hematocrit 38.8, platelet count is 110,000. Sodium 136, potassium 4.6, bicarbonate 26, BUN 32, creatinine 1.27. Troponin 0.14, 0.18, 0.19. Albumin is 3.0. Total cholesterol is 144. LDL 87. HDL 49. Triglycerides 37. INR is 1.0. IMAGING STUDIES: Chest x-ray shows bibasilar infiltrates, possible pulmonary congestion. IMPRESSION: 1. Progressive shortness of breath and dyspnea on exertion with orthopnea and paroxysmal nocturnal dyspnea. 2. Status post bioprosthetic aortic valve replacement. 3. Hypertension. 4. Volume overload, lower extremity edema. 5. Chronic renal insufficiency. 6. Mildly elevated troponins. PLAN: 1. Continue IV Lasix diuresis as systolic blood pressure and creatinine tolerate. 2. Obtain echocardiogram, re-evaluate aortic valve and left ventricular function. 3. Nitro paste, metoprolol have been continued. Thank you for allowing me to contribute to the patient's care. Thank you for this consultation. MD JENNIFER Greene/MANOHAR /11:16 AM /12:41 PM
--- NOTE | 2017-08-30 15:34 | EKG ---
Date Performed: 08/29/2017 Time Performed: 14:59:18 PTAGE: 87 years EKG: ECTOPIC ATRIAL RHYTHM When compared to previous tracing, the ectopic atrial rhythm is New. ABNORMAL RHYTHM ECG PREVIOUS TRACING : 09/06/2014 09.05 DOCTOR: Norm Bhat Interpretating Date/Time 08/30/2017 15:33:07
--- NOTE | 2017-08-30 15:37 | EKG ---
Date Performed: 08/29/2017 Time Performed: 22:54:45 PTAGE: 87 years EKG: Sinus rhythm WITH FIRST DEGREE AV BLOCK Been replaced with sinus rhythm with first degree AV block. ABNORMAL ECG PREVIOUS TRACING : 08/29/2017 14.59/18 DOCTOR: Norm Bhat Interpretating Date/Time 08/30/2017 15:35:12
--- NOTE | 2017-08-30 15:38 | EKG ---
Date Performed: 08/30/2017 Time Performed: 03:25:43 PTAGE: 87 years EKG: SINUS BRADYCARDIA WITH FIRST DEGREE AV BLOCK When compared to previous tracing, no signific ant change. ABNORMAL ECG PREVIOUS TRACING : 08/29/2017 22.54.45 DOCTOR: Norm Bhat Interpretating Date/Time 08/30/2017 15:36:27
[2017-08-31] VITALS (11 sets, daily range): BP systolic 103–196; BP diastolic 52–84; PULSE 58–74; RESP 17–18; TEMP 97.8–98; O2SAT 95–99
[2017-08-31] MEDS: NITROGLYCERIN 2% OINT 1 GM PACKET TOPICAL SCH ×5 (01:55→18:00)
[2017-08-31] MEDS: RESP: ALBUTEROL 2.5 MG/IPRATROPIUM 0.5 MG NEB (SCH) INH ×3 (03:22→19:27)
[2017-08-31 06:02] LABS: HEMATOCRIT 37.2 % (39.0-51.0); HEMOGLOBIN 13.1 GM/DL (13.0-17.0); MEAN CELL VOLUME 90.1 FL (80.0-100.0); MEAN CORPUSCULAR HEMOGLOBIN 31.7 PG (27.0-34.0); MEAN CORPUSCULAR HGB CONC 35.2 % (32.0-36.0); MEAN PLATELET VOLUME 9.2 FL (7.0-11.0); PLATELET COUNT 115 TH/MM3 (150-450); RED BLOOD COUNT 4.13 MIL/MM3 (4.50-5.90); RED CELL DISTRIBUTION WIDTH 13.6 % (11.6-17.2); WHITE BLOOD COUNT 5.7 TH/MM3 (4.0-11.0)
[2017-08-31 06:16] LABS: BICARBONATE 31.5 MEQ/L (21.0-32.0); CALCIUM 8.3 MG/DL (8.5-10.1); CREATININE 1.31 MG/DL (0.60-1.30)
[2017-08-31] MEDS: HEPARIN-D5W 25,000 U/250 ML 250 ML IV PRN (08:01)
[2017-08-31] MEDS: RESP: ALBUTEROL 2.5 MG/3 ML NEB (SCH) INH ×3 (08:17→23:20)
[2017-08-31] MEDS: SODIUM CHLORIDE 0.9% FLUSH 10 ML FLUSH IV FLUSH SCH ×2 (09:00→21:00)
[2017-08-31] MEDS: FUROSEMIDE 40 MG/4 ML VIAL IV PUSH SCH ×2 (10:23→18:45)
[2017-08-31] MEDS: ASPIRIN EC 81 MG TABEC PO SCH (10:24)
[2017-08-31] MEDS: METOPROLOL TARTRATE 25 MG TAB PO SCH ×2 (10:24→22:07)
--- NOTE | 2017-08-31 11:10 | HHI.FPPN ---
Subjective Remarks Patient seen and examined this morning. No acute events overnight per report. Vitals have remained in normal limits with mild asymptomatic hypotension. Patient states that overall he has improved, however he continues to get SOB with exertion. He feels that his lower extremity edema is greatly improved from his admission. Otherwise he has no complaints and denies any new fevers, chills , SOB, chest pain, NVD, ABD pain, or calf tenderness. (Miek Hopkins MD R2) Objective Vitals Vital Signs Date Time Temp Pulse Resp B/P (MAP) Pulse Ox O2 Delivery O2 Flow Rate FiO2 08/31/17 08:18 96 21 08/31/17 06:59 97.8 61 18 103/52 (69) 97 08/31/17 04:20 97.9 68 17 120/53 (75) 95 08/30/17 23:22 97.6 66 17 122/58 (79) 97 08/30/17 20:20 72 08/30/17 19:52 98 08/30/17 19:33 97.9 67 17 125/62 (83) 96 08/30/17 16:05 64 08/30/17 15:49 97.4 64 18 129/56 (80) 99 08/30/17 12:17 97.4 59 22 115/58 (77) 95 08/30/17 12:05 57 I/O 08/30/17 08/30/17 08/30/17 08/31/17 08/31/17 08/31/17 07:00 15:00 23:00 07:00 15:00 23:00 Output Total 300 ml 775 ml Balance -300 ml -775 ml Output Urine Total 300 ml 775 ml (Mike Hopkins MD R2) Result Diagram: 08/31/1723 08/31/1723 Objective Remarks GENERAL: Elderly male sitting up in bed in [facility]. SKIN: No rashes, ecchymoses or lesions. Cool and dry. HEENT: Atraumatic, normocephalic with EOMI. No rhinorrhea. MMM. No visible LAD or JVD. CARDIOVASCULAR: Regular rate and rhythm without 2/6 LAITH. 2+ BL radial pulses appreciated, no LE pulses appreciated due to edema, appropriate capillary refill. RESPIRATORY: Coarse breath sounds bilaterally at the bases. No increased breathing. Able to communicate if full sentences. GASTROINTESTINAL: Abdomen soft, non-tender, nondistended with +BS. No masses appreciated. MUSCULOSKELETAL: No cyanosis. No calf tenderness BL. Patient ambulating without assistance. LE: 2+ pedal edema to 1in superior to the lateral malleoli BL. R area tender to palpation at the medal malleoli radiating up to his mid calf. NEUROLOGICAL: Afocal. AAOx3. Normal speech and judgement. (Mike Hopkins MD R2) A/P Assessment and Plan 87 yr old with PMHx of HTN, CHF, CABG, and bovine aortic valve replacement presents with SOB and b/l lower extremity edema. Discharge Planning Pending echocardiogram with Cardiology recommendations (Mike Hopkins MD R2) Attending Attestation Patient examined and case discussed with resident physicians I have read the above note and agree with the assessment/plan as discussed with me I was involved in all medical decision making for this patient Ramon Graves MD (Ramon Graves MD) Problem List: (1) Acute exacerbation of CHF (congestive heart failure) ICD Codes: I50.9 - Heart failure, unspecified Status: Acute Plan: Acute on chronic CHF exacerbation vs NSTEMI Troponins elevated at 0.19, 0.18, and 0.14 respectively EKG with ectopic atrial beats, however no T-wave inversions or ST changes -Heparin drip continued overnight - Cardiology consulted -BNP elevated at 404 -Continue Lasix 40 mg IV twice daily -Order written for strict I's and O's -Daily weights -Fluid restriction to 1.5 L and low-salt diet Echo 2D doppler ordered Continue to monitor on cardiac telemetry Aspirin 81 mg PO daily Metoprolol Tartrate 25mg PO q12hr Morphine 2mg IV Push q30m PRN chest pain Nitroglycerin 0.4 mg SL q5m PRN chest pain Breathing treatments with albuterol scheduled (2) Elevated serum creatinine ICD Codes: R79.89 - Other specified abnormal findings of blood chemistry Plan: Cr elevated on admission No fluids at this time due to edema and SOB Continue to monitor (3) Open wound of chest wall with complication ICD Codes: S21.109A - Open wound of chest wall with complication Status: Acute Plan: Appears to be a fistula or draining tract from previous open heart surgery -Patient states that this has been there for years and he has been evaluated for this several times -Wound management consulted for proper dressing (4) HTN (hypertension) ICD Codes: I10 - Essential (primary) hypertension Status: Chronic Plan: Metoprolol Tartrate 25mg PO q12hr (5) Nutrition, metabolism, and development symptoms ICD Codes: R63.8 - Other symptoms and signs concerning food and fluid intake Status: Acute Plan: Diet: Heart healthy diet with sodium and fluid restrictions Fluids: not indicated at this time Vitals q4h, monitor I & Os, cardiac telemetry PT ordered (Mike Hopkins MD R2) Problem Qualifiers (1) Acute exacerbation of CHF (congestive heart failure): Qualified Codes: I50.9 - Heart failure, unspecified (2) Open wound of chest wall with complication: Qualified Codes: S21.109S - Unspecified open wound of unspecified front wall of thorax without penetration into thoracic cavity, sequela (3) HTN (hypertension): Qualified Codes: I10 - Essential (primary) hypertension Mike Hopkins MD R2 Aug 31, 2017 11:10 Ramon Graves MD Sep 01, 2017 16:15
--- NOTE | 2017-08-31 15:13 | ECHRPT ---
Indication: CHEST PAIN CONCLUSIONS Normal left ventricular size. Wall thickness is normal. The left ventricular systolic function is moderately reduced with an estimated ejection fraction in the range of 40-45%. There is apical hypokinesis The right ventricular systoilc function is mildly decreased. Mild aortic valve regurgitation. The pulmonary valve is not well visualized. There is a trivial pericardial effusion present. BP: / HR: Rhythm: MEASUREMENTS (Male / Female) Normal Values Technical Quality: 2D ECHO LV Diastolic Diameter PLAX 5.5 cm 4.2 - 5.9 / 3.9 - 5.3 cm LV Systolic Diameter PLAX 3.8 cm IVS Diastolic Thickness 1.0 cm 0.6 - 1.0 / 0.6 - 0.9 cm LVPW Diastolic Thickness 0.8 cm 0.6 - 1.0 / 0.6 - 0.9 cm LV Relative Wall Thickness 0.3 RV Internal Dim ED PLAX 2.6 cm LVOT Diameter 1.9 cm LA Systolic Diameter LX 4.1 cm 3.0 - 4.0 / 2.7 - 3.8 cm M-MODE Aortic Root Diameter MM 3.5 cm AV Cusp Separation MM 1.8 cm DOPPLER AV Peak Velocity 207.0 cm/s AV Peak Gradient 17.1 mmHg AV Mean Gradient 9.0 mmHg AV Velocity Time Integral 48.9 cm LVOT Peak Velocity 130.5 cm/s LVOT Peak Gradient 6.8 mmHg LVOT Velocity Time Integral 31.9 cm AV Area Cont Eq vti 1.8 cm AV Area Cont Eq pk 1.8 cm Mitral E Point Velocity 101.0 cm/s Mitral A Point Velocity 72.6 cm/s Mitral E to A Ratio 1.4 TR Peak Velocity 285.0 cm/s TR Peak Gradient 32.5 mmHg FINDINGS LEFT VENTRICLE Normal left ventricular size. Wall thickness is normal. The left ventricular systolic function is moderately reduced with an estimated ejection fraction in the range of 40-45%. There is apical hypokinesis RIGHT VENTRICLE The right ventricular systoilc function is mildly decreased. LEFT ATRIUM The left atrial size is normal. RIGHT ATRIUM The right atrial size is normal. ATRIAL SEPTUM Normal atrial septal thickness without atrial level shunting by limited color doppler interrogation. AORTA Mildly dilated proximal ascending aorta. Mild aortic dilatation at the level of the sinuses of Valsalva. MITRAL VALVE Structurally normal mitral valve. No mitral valve stenosis or regurgitation. AORTIC VALVE Mild aortic valve regurgitation. The aortic prosthesis is not well visualized. TRICUSPID VALVE Structurally normal tricuspid valve. No tricuspid valve stenosis or regurgitation. PULMONARY VALVE The pulmonary valve is not well visualized. VESSELS The inferior vena cava is normal in size. PERICARDIUM There is a trivial pericardial effusion present. Roge Wolf MD (Electronically Signed) Final Date:31 August 2017 15:12
--- NOTE | 2017-08-31 16:13 | PD.CARD.PN ---
Subjective Subjective Remarks STILL WITH ORTHOPNEA VAGUE CHEST DISCOMFORT Objective Medications Current Medications Medications (Trade) Dose Ordered Sig/Devon Route Start Time Stop Time Status Last Admin (NS Flush) 2 ml BID IV FLUSH 08/29/17 21:00 08/30/17 09:45 (NS Flush) 2 ml UNSCH PRN IV FLUSH 08/29/17 17:15 08/30/17 18:14 (Nitrostat Sl) 0.4 mg Q5M PRN SL 08/29/17 17:15 (Morphine Inj) 2 mg Q30M PRN IV PUSH 08/29/17 17:15 (Heparin Inj) 5,000 units UNSCH PRN IV PUSH 08/30/17 00:30 (Heparin Inj) 2,500 units UNSCH PRN IV PUSH 08/30/17 00:30 Heparin Sodium/ Dextrose 250 ml @ 10 mls/hr TITRATE PRN IV 08/29/17 18:30 08/31/17 08:01 (Nitroglycerin 2% Oint) 0.5 inch Q6HR TOPICAL 08/29/17 22:15 08/31/17 01:55 (Ecotrin Ec) 81 mg DAILY PO 08/30/17 09:00 08/31/17 10:24 (Lopressor) 25 mg Q12HR PO 08/29/17 21:00 08/31/17 10:24 (Lasix Inj) 40 mg BID@18 IV PUSH 08/30/17 09:00 08/31/17 10:23 (Albuterol Neb) 2.5 mg Q8HR NEB INH 08/30/17 08:30 08/31/17 08:17 (Duoneb Neb) 1 ampule Q8HR ALT NEB INH 08/30/17 12:00 08/31/17 13:49 Vital Signs / I&O Vital Signs Date Time Temp Pulse Resp B/P (MAP) Pulse Ox O2 Delivery O2 Flow Rate FiO2 08/31/17 15:17 112/56 (74) 08/31/17 15:09 98.0 64 18 196/84 (121) 97 08/31/17 10:56 97.8 68 18 120/58 (78) 99 08/31/17 08:18 96 21 08/31/17 06:59 97.8 61 18 103/52 (69) 97 08/31/17 04:20 97.9 68 17 120/53 (75) 95 08/30/17 23:22 97.6 66 17 122/58 (79) 97 08/30/17 20:20 72 08/30/17 19:52 98 08/30/17 19:33 97.9 67 17 125/62 (83) 96 I/O 08/30/17 08/30/17 08/30/17 08/31/17 08/31/17 08/31/17 07:00 15:00 23:00 07:00 15:00 23:00 Output Total 300 ml 775 ml Balance -300 ml -775 ml Output Urine Total 300 ml 775 ml Physical Exam NAD ANICTERIC, MARAH BIBASILAR CRACKLES ABD BENIGN EXTR WITH EDEMA Laboratory Laboratory Tests Test 08/30/17 19:30 08/31/17 05:23 08/31/17 14:39 Activated Partial Thromboplast Time 47.4 SEC 31.7 SEC 36.4 SEC White Blood Count 5.7 TH/MM3 Red Blood Count 4.13 MIL/MM3 Hemoglobin 13.1 GM/DL Hematocrit 37.2 % Mean Corpuscular Volume 90.1 FL Mean Corpuscular Hemoglobin 31.7 PG Mean Corpuscular Hemoglobin Concent 35.2 % Red Cell Distribution Width 13.6 % Platelet Count 115 TH/MM3 Mean Platelet Volume 9.2 FL Blood Urea Nitrogen 32 MG/DL Creatinine 1.31 MG/DL Random Glucose 84 MG/DL Calcium Level 8.3 MG/DL Sodium Level 137 MEQ/L Potassium Level 3.8 MEQ/L Chloride Level 100 MEQ/L Carbon Dioxide Level 31.5 MEQ/L Anion Gap 6 MEQ/L Estimat Glomerular Filtration Rate 52 ML/MIN Assessment and Plan Assessment and Plan IMPRESSION: 1. Progressive shortness of breath and dyspnea on exertion with orthopnea and paroxysmal nocturnal dyspnea. 2. Status post bioprosthetic aortic valve replacement. 3. Hypertension. 4. Volume overload, lower extremity edema. 5. Chronic renal insufficiency. 6. Mildly elevated troponins. PLAN: MEDICATIONS REVIEWED, CONTINUE SAME CONTINUE NEGATIVE FLUID BALANCE SBP AND CREATININE TOLERATES DR CONCEPCION WILL RETURN IN AM Wong Crockett MD Aug 31, 2017 16:13
[2017-09-01] VITALS (10 sets, daily range): BP systolic 101–121; BP diastolic 49–65; PULSE 55–96; RESP 18–23; TEMP 97.5–98; O2SAT 72–98
[2017-09-01] MEDS: RESP: ALBUTEROL 2.5 MG/IPRATROPIUM 0.5 MG NEB (SCH) INH ×3 (03:09→20:59)
[2017-09-01 05:52] LABS: HEMATOCRIT 37.8 % (39.0-51.0); HEMOGLOBIN 13.2 GM/DL (13.0-17.0); MEAN CELL VOLUME 90.5 FL (80.0-100.0); MEAN CORPUSCULAR HEMOGLOBIN 31.5 PG (27.0-34.0); MEAN CORPUSCULAR HGB CONC 34.8 % (32.0-36.0); MEAN PLATELET VOLUME 9.3 FL (7.0-11.0); PLATELET COUNT 113 TH/MM3 (150-450); RED BLOOD COUNT 4.18 MIL/MM3 (4.50-5.90); RED CELL DISTRIBUTION WIDTH 13.4 % (11.6-17.2)
[2017-09-01] MEDS: NITROGLYCERIN 2% OINT 1 GM PACKET TOPICAL SCH ×3 (06:00→12:00)
[2017-09-01] MEDS: RESP: ALBUTEROL 2.5 MG/3 ML NEB (SCH) INH ×3 (08:25→23:00)
[2017-09-01] MEDS: ASPIRIN EC 81 MG TABEC PO SCH (09:00)
[2017-09-01] MEDS: METOPROLOL TARTRATE 25 MG TAB PO SCH (09:00)
[2017-09-01] MEDS: SODIUM CHLORIDE 0.9% FLUSH 10 ML FLUSH IV FLUSH SCH ×2 (09:00→21:37)
[2017-09-01] MEDS: FUROSEMIDE 40 MG/4 ML VIAL IV PUSH SCH ×2 (09:00→17:31)
--- NOTE | 2017-09-01 10:00 | PD.CARD.PN ---
Subjective Subjective Remarks Remains SOB, No improvement with diuresis or breathing treatments. Objective Medications Current Medications Medications (Trade) Dose Ordered Sig/Devon Route Start Time Stop Time Status Last Admin (NS Flush) 2 ml BID IV FLUSH 08/29/17 21:00 09/01/17 09:00 (NS Flush) 2 ml UNSCH PRN IV FLUSH 08/29/17 17:15 08/30/17 18:14 (Nitrostat Sl) 0.4 mg Q5M PRN SL 08/29/17 17:15 (Morphine Inj) 2 mg Q30M PRN IV PUSH 08/29/17 17:15 (Heparin Inj) 5,000 units UNSCH PRN IV PUSH 08/30/17 00:30 (Heparin Inj) 2,500 units UNSCH PRN IV PUSH 08/30/17 00:30 Heparin Sodium/ Dextrose 250 ml @ 10 mls/hr TITRATE PRN IV 08/29/17 18:30 08/31/17 08:01 (Nitroglycerin 2% Oint) 0.5 inch Q6HR TOPICAL 08/29/17 22:15 08/31/17 01:55 (Ecotrin Ec) 81 mg DAILY PO 08/30/17 09:00 09/01/17 09:00 (Lopressor) 25 mg Q12HR PO 08/29/17 21:00 09/01/17 09:00 (Lasix Inj) 40 mg BID@,18 IV PUSH 08/30/17 09:00 09/01/17 09:00 (Albuterol Neb) 2.5 mg Q8HR NEB INH 08/30/17 08:30 09/01/17 08:25 (Duoneb Neb) 1 ampule Q8HR ALT NEB INH 08/30/17 12:00 08/31/17 19:27 Vital Signs / I&O Vital Signs Date Time Temp Pulse Resp B/P (MAP) Pulse Ox O2 Delivery O2 Flow Rate FiO2 09/01/17 07:36 97.6 57 23 106/51 (69) 96 09/01/17 03:17 98.0 69 18 101/49 (66) 97 08/31/17 22:07 98.0 74 18 134/68 (90) 97 08/31/17 20:00 98.0 74 18 124/68 (86) 97 08/31/17 19:29 98 2/4/18 15:17 112/56 (74) 08/31/17 15:09 98.0 64 18 196/84 (121) 97 08/31/17 15:00 59 08/31/17 10:56 97.8 68 18 120/58 (78) 99 08/31/17 10:15 58 I/O 08/31/17 08/31/17 08/31/17 09/01/17 09/01/17 09/01/17 07:00 15:00 23:00 07:00 15:00 23:00 Intake Total 850 ml Output Total 750 ml 1500 ml Balance 100 ml -1500 ml Intake Oral 850 ml Output Urine Total 750 ml 1500 ml # Voids 4 Physical Exam GENERAL: Elderly male SKIN: Warm and dry. HEAD: Normocephalic. EYES: No scleral icterus. No injection or drainage. NECK: Supple, trachea midline. CARDIOVASCULAR: Regular rate and rhythm, chronic sternal wound dressing with saturated with SS drainage RESPIRATORY: Bilateral wheezing, left base rales. GASTROINTESTINAL: Abdomen soft, non-tender, nondistended. MUSCULOSKELETAL: No cyanosis, BLE edema, + Homans sign bilateral BACK: Nontender without obvious deformity. Laboratory Laboratory Tests Test 08/31/17 14:39 08/31/17 20:05 09/01/17 03:05 09/01/17 04:42 Activated Partial Thromboplast Time 36.4 SEC 39.2 SEC 52.2 SEC White Blood Count 5.0 TH/MM3 Red Blood Count 4.18 MIL/MM3 Hemoglobin 13.2 GM/DL Hematocrit 37.8 % Mean Corpuscular Volume 90.5 FL Mean Corpuscular Hemoglobin 31.5 PG Mean Corpuscular Hemoglobin Concent 34.8 % Red Cell Distribution Width 13.4 % Platelet Count 113 TH/MM3 Mean Platelet Volume 9.3 FL Assessment and Plan Assessment and Plan SOB, BLE edema - CHF vs ACS vs PE Slightly elevated troponin X 3, history of cardiac cath 2010 prior to AVR. Told coronary arteries were "clean." Troponin elevated may be due to CKD Wide complex tachycardia on telemetry. Afib vs SVT. History of AV replacement Decreased LV function EF 40-45% Chronic non-healing chest wound, s/p muscle flap and hyperbaric treatments. PLAN: Check VQ and BLE doppler Continue heparin on the basis of concern for PE and questionable Afib Continue diuresis Consult pulmonary. The patient was seen and evaluated by Dr Back who completed face to face encounter and physical exam and participated in evaluation and management. Ashley Langford Sep 01, 2017 10:00
--- NOTE | 2017-09-01 10:30 | RADRPT ---
EXAM DATE/TIME: 09/01/2017 10:03 [facility] COMPARISON: No previous studies available for comparison. EXTERNAL COMPARISON : [facility], US LEG VENOUS DOPPLER, BILATERAL, October 31, 2015 INDICATIONS : Bilateral leg edema. MEDICAL HISTORY : Congestive heart failure. Aneurysm, abdominal. Renal calculi. Leaky aortic valve. HTN. Dyspena. Galls tones. Basal cell carcinoma. Hydrocele. Anticoagulant therapy, Heparin. SURGICAL HISTORY : Tonsillectomy.Abdominal aortic aneurysm repair. Bilateral cataracts. CABG. Bovine aortic valve replac ement. Debrided chest infection, sternal wires out. Left inguinal hernia repair. Lithotripsy. ENCOUNTER: Initial ACUITY: 4 - 6 months PAIN SCORE: 0/10 LOCATION: Bilateral leg. TECHNIQUE: Venous ultrasound of the left and right leg was performed from the inguinal ligament to the proximal calf. Real-time, color Doppler and spectral tracing, compression and augmentation techniques were us ed. FINDINGS: RIGHT LEG: There is normal compressibility of the deep venous system from the inguinal region to the proximal ca lf. No echogenic clot is seen in the lumen of the common femoral, femoral, popliteal, and posterior tibial veins. There is a normal response of the venous system to proximal and distal augmentation an d respiration. LEFT LEG: There is normal compressibility of the deep venous system from the inguinal region to the proximal ca lf. No echogenic clot is seen in the lumen of the common femoral, femoral, popliteal, and posterior tibial veins. There is a normal response of the venous system to proximal and distal augmentation an d respiration. CONCLUSION: Negative for deep venous thrombosis. Jax Peraza MD FACR on September 01, 2017 at 10:28 Board Certified Radiologist. This report was verified electronically.
--- NOTE | 2017-09-01 10:39 | HHI.FPPN ---
Subjective Remarks Patient seen and examined this morning. Overnight medical team was not called, however patient had up to 8 episodes of tachycardia registered by telemetry with HR up to 150s from [id number]. When asked, patient does not remember these episodes as he was watching the Superbowl. This morning he states that he had "air hunger" when he woke up from sleep, however is currently "breathing the best he has" since admission. His only complaint is that he would like to be discharged home. He denies any new fevers, chills, chest pain, NVD, ABD pain, or calf tenderness. Objective Vitals Vital Signs Date Time Temp Pulse Resp B/P (MAP) Pulse Ox O2 Delivery O2 Flow Rate FiO2 09/01/17 07:36 97.6 57 23 106/51 (69) 96 09/01/17 03:17 98.0 69 18 101/49 (66) 97 08/31/17 22:07 98.0 74 18 134/68 (90) 97 08/31/17 20:00 98.0 74 18 124/68 (86) 97 08/31/17 19:29 98 08/31/17 15:17 112/56 (74) 08/31/17 15:09 98.0 64 18 196/84 (121) 97 08/31/17 15:00 59 08/31/17 10:56 97.8 68 18 120/58 (78) 99 I/O 08/31/17 08/31/17 08/31/17 09/01/17 09/01/17 09/01/17 07:00 15:00 23:00 07:00 15:00 23:00 Intake Total 850 ml Output Total 750 ml 1500 ml Balance 100 ml -1500 ml Intake Oral 850 ml Output Urine Total 750 ml 1500 ml # Voids 4 Result Diagram: 09/01/17 0442 08/31/17 0523 Objective Remarks GENERAL: Elderly male sitting up in bed in [facility]. SKIN: No rashes, ecchymoses or lesions. Cool and dry. HEENT: Atraumatic, normocephalic with EOMI. No rhinorrhea. MMM. No visible LAD or JVD. CARDIOVASCULAR: Regular rate and rhythm without 2/6 LAITH. 2+ BL radial pulses appreciated, no LE pulses appreciated due to edema, appropriate capillary refill. RESPIRATORY: Coarse breath sounds bilaterally at the bases. No increased breathing. Able to communicate if full sentences. GASTROINTESTINAL: Abdomen soft, non-tender, nondistended with +BS. No masses appreciated. MUSCULOSKELETAL: No cyanosis. No calf tenderness BL. Patient ambulating without assistance. LE: 2+ pedal edema to the lateral malleoli BL. R area tender to palpation at the medal malleoli radiating up to his mid calf has resolved, but patient now endorses same pain on the L malleoli. NEUROLOGICAL: Afocal. AAOx3. Normal speech and judgement. A/P Assessment and Plan 87 yr old with PMHx of HTN, CHF, CABG, and bovine aortic valve replacement presents with SOB and b/l lower extremity edema. Discharge Planning Pending Cardiology recommendations Problem List: (1) Acute exacerbation of CHF (congestive heart failure) ICD Codes: I50.9 - Heart failure, unspecified Status: Acute Plan: -Continue Lasix 40 mg IV twice daily -Order written for strict I's and O's -Daily weights -Fluid restriction to 1.5 L and low-salt diet Cardiology consulted -Ordered VQ scan and BLE doppler to rule out PE -Continue Heparin drip on basis of concern for PE/Afib/SVT VQ scan ordered due to CKD BLE Doppler ordered Echo 2D doppler showing decreased LV function with EF of 40-45% Troponins elevated at 0.19, 0.18, and 0.14 respectively EKG with ectopic atrial beats, however no T-wave inversions or ST changes -Heparin drip continued -BNP elevated at 404 -8 episodes of tachycardia on telemetry 09/01, otherwise asymptomatic sinus bradycardia Continue to monitor on cardiac telemetry Aspirin 81 mg PO daily Metoprolol Tartrate 25mg PO q12hr Morphine 2mg IV Push q30m PRN chest pain Nitroglycerin 0.4 mg SL q5m PRN chest pain Breathing treatments with albuterol scheduled (2) Hospital acquired PNA ICD Codes: J18.9 - Pneumonia, unspecified organism Status: Acute Plan: -Repeat chest x-ray to: Left basilar patchiness consistent with atelectasis or developing infiltrate -Vancomycin and Zosyn ordered for possible developing hospital acquired pneumonia -Incentive spirometry, Acapella, and respiratory CPT ordered -Pulmonology consulted, appreciate recommendations (3) Elevated serum creatinine ICD Codes: R79.89 - Other specified abnormal findings of blood chemistry Plan: Cr elevated on admission No fluids at this time due to edema and SOB Continue to monitor (4) Open wound of chest wall with complication ICD Codes: S21.109A - Open wound of chest wall with complication Status: Acute Plan: Appears to be a fistula or draining tract from previous open heart surgery -Patient states that this has been there for years and he has been evaluated for this several times -Wound management consulted for proper dressing (5) HTN (hypertension) ICD Codes: I10 - Essential (primary) hypertension Status: Chronic Plan: Metoprolol Tartrate 25mg PO q12hr (6) Nutrition, metabolism, and development symptoms ICD Codes: R63.8 - Other symptoms and signs concerning food and fluid intake Status: Acute Plan: Diet: Heart healthy diet with sodium and fluid restrictions Fluids: not indicated at this time Vitals q4h, monitor I & Os, cardiac telemetry PT ordered Problem Qualifiers (1) Acute exacerbation of CHF (congestive heart failure): Qualified Codes: I50.9 - Heart failure, unspecified (2) Open wound of chest wall with complication: Qualified Codes: S21.109S - Unspecified open wound of unspecified front wall of thorax without penetration into thoracic cavity, sequela (3) HTN (hypertension): Qualified Codes: I10 - Essential (primary) hypertension Mike Hopkins MD R2 Sep 01, 2017 10:39
--- NOTE | 2017-09-01 11:04 | RADRPT ---
EXAM DATE/TIME: 09/01/2017 10:45 [facility] COMPARISON: CHEST SINGLE AP, August 29, 2017, 16:02. INDICATIONS : Shortness of breath. MEDICAL HISTORY : Aneurysm, abdominal. Hypertension Leaky valve, Congestive heart failure. SURGICAL HISTORY : Tonsillectomy. Aortic valve replaced. ENCOUNTER: Subsequent ACUITY: 4 - 6 days PAIN SCORE: 0/10 LOCATION: Bilateral chest FINDINGS: The heart is stable. Left basilar patchiness is noted consistent with atelectasis and/or developing i nfiltrate. The right lung is clear. CONCLUSION: Left basilar patchiness consistent with atelectasis and/or developing infiltrate. Deyvi Michael MD on September 01, 2017 at 11:00 Board Certified Radiologist. This report was verified electronically.
--- NOTE | 2017-09-01 13:10 | RADRPT ---
EXAM DATE/TIME: 09/01/2017 12:26 [facility] COMPARISON: CHEST SINGLE AP, September 01, 2017, 10:45. INDICATIONS : Short of breath. DOSE: 8.5 mCi Tc99m MAA IV 1.4 mCi Tc99m DTPA aerosol MEDICAL HISTORY : Hypertension. Carcinoma, basal cell. SURGICAL HISTORY : CABG Inguinal hernia repair. Bovine aortic valce replacement. ENCOUNTER: Initial ACUITY: 1 day PAIN SCALE: 1/10 LOCATION: Bilateral chest TECHNIQUE: Following five minutes of tidal breathing of DTPA aerosol, planar images of the lungs were performed in eight projections. The patient was then injected with MAA, and eight-view perfusion scan was perf ormed. FINDINGS: There is moderately heterogeneous aerosol ventilation present with mild central deposition of tracer. Perfusion is fairly homogeneous with mild small nonsegmental areas of relatively diminished perfusio n matching ventilatory abnormalities. The appearance would be consistent with chronic airways disease CONCLUSION: Low probability scan for pulmonary embolism Kahlil Lopez MD on September 01, 2017 at 13:06 Board Certified Radiologist. This report was verified electronically.
[2017-09-01] MEDS ORDERED: VANCOMYCIN INJ 1,000 MG in SODIUM CHLOR 0.9% 250 ML INJ 250 ML IV SCH (15:00)
[2017-09-01] MEDS ORDERED: Vancomycin Consult Pharmacy 1 EA OTHER SCH (15:00)
--- NOTE | 2017-09-01 15:12 | PD.WCN.NOT ---
Wound Consult Description: Received consult from Doctor Hopkins regarding wound management of sternotomy wound Communicated with: CAIN Bruner CDU and Doctor Mike Hopkins MD R2 Recommendation: Please cleanse wound to midline chest with normal saline and apply Maxorb II ( calcium alginate) just over draining wound and cover with Optilock dressing. Please apply skin prep to periwound and before securing dressing with paper tape. Change dressing every other day or PRN for saturation or dislodgement.\\ Please refer to out patient wound care when discharged for wound management. Additional Information: Patient seen on CDU H pod for evaluation of wound management of sternotomy wound. Patient states," I have had this wound for 4 years and have been to many wound care centers from [place] to [place] and they have not been able to heal the wound.I have also seen Doctor Lui in [place] for wound.Have had many cultures taken of the wound and all show no infection." Patient also reports having multiple imaging studies of wound that have not identified where oozing is coming from.Removed saturated dressing to midline chest to reveal small wound measuring ~0.2cm x ~0.2cm x ~0.1cm. Wound presents with moderate to heavy sero-sanguinous drainage that is without odor. Periwound is noted with scar tissue that and is otherwise unremarkable.Cleansed wound with normal saline and patted dry and applied skin prep to periwound before covering wound with Maxorb II (calcium alginate) just over wound bed. Secured dressing with dry 4 x4 gauze pad and paper tape. Venus Tai [facility] Sep 01, 2017 15:12
[2017-09-01] MEDS: PIPERACIL-TAZO 4.5 GM PREMIX 100 ML IV SCH ×2 (16:10→21:36)
[2017-09-01] MEDS ORDERED: VANCOMYCIN INJ 1,750 MG in SODIUM CHLORID 0.9% 500 ML INJ 500 ML IV SCH (17:00)
[2017-09-01] MEDS: CLINDAMYCIN 600 MG/NS PREMIX 50 ML IV SCH (17:31)
[2017-09-01] MEDS: CARVEDILOL 3.125 MG TAB PO SCH (21:37)
[2017-09-01] MEDS: methylPREDNISolone SOD SUCC 40 MG/1 ML VIAL IV PUSH SCH (21:37)
[2017-09-02] VITALS (7 sets, daily range): BP systolic 115–132; BP diastolic 54–62; PULSE 63–75; RESP 18; TEMP 97.8–98.1; O2SAT 94–97
[2017-09-02] MEDS: CLINDAMYCIN 600 MG/NS PREMIX 50 ML IV SCH ×3 (00:35→15:00)
[2017-09-02] MEDS: methylPREDNISolone SOD SUCC 40 MG/1 ML VIAL IV PUSH SCH ×3 (02:48→15:15)
[2017-09-02] MEDS: PIPERACIL-TAZO 4.5 GM PREMIX 100 ML IV SCH ×3 (04:35→16:15)
[2017-09-02] MEDS: RESP: ALBUTEROL 2.5 MG/IPRATROPIUM 0.5 MG NEB (SCH) INH ×2 (05:39→11:21)
[2017-09-02] MEDS: RESP: ALBUTEROL 2.5 MG/3 ML NEB (SCH) INH ×2 (08:00→16:00)
--- NOTE | 2017-09-02 08:14 | MB ---
cc: MAYUR GARCIA DATE OF CONSULTATION 09/01/[address] Back REASON FOR CONSULTATION Evaluation of shortness of breath. HISTORY OF PRESENT ILLNESS Mr. 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 The patient went on a cruise to [place] and he has been having increasing shortness of breath for the last two weeks or so. He does admit to one pillow orthopnea. He cannot sleep on his side, he has lay on his back. He notice some wheezing. Does not have any fevers. There are no night sweats. No chest pain. Because of these symptoms, he came to the hospital. He had a workup and his chest x-ray showed a left basilar patchiness consistent with atelectasis or early pneumonia. His WBC count is 5.0, hemoglobin 13.5, hematocrit 37.8, MCV 90, platelet count 113. Sodium 137, potassium 3.8, chloride 100, CO2 31, BUN 32, creatinine 1.31. His VQ scan is low probability of pulmonary embolism. Ultrasound of the leg shows no DVT. PAST MEDICAL HISTORY His past medical history is significant for a history of: 1. Hypertension 2. Bioprosthetic aortic valve replacement 3. Chronic draining sternal wound 4. History of atrial fibrillation. 5. History of inguinal hernia surgery. MEDICATIONS He is currently takin. Coreg 3.125 mg q12h 2. Clindamycin IV 3. Zosyn IV 4. Albuterol/Atrovent nebulizer treatment 5. Lasix 40 mg twice a day 6. Nitroglycerine 0.4 mg p.r.n. ALLERGIES NO KNOWN DRUG ALLERGIES. SOCIAL HISTORY He has a history of smoking for 30 some years which he quit 30 years ago. Drinks socially. FAMILY HISTORY He is a and lives with a significant other. 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 FAMILY HISTORY He has no children. REVIEW OF SYSTEMS Normally he is up, around and active. Weight is stable. No DVT or pulmonary embolism. No seizure, stroke or epilepsy. PHYSICAL EXAM This is a well-built, well-nourished pleasant elderly male not in acute distress. VITAL SIGNS: Blood pressure 114/65, heart rate 71, respiration 18, temperature 97.6. HEENT: Pupils are equal and reactive to light. Oral mucosa and nasal mucosa normal. NECK: Supple. JVP not raised. CHEST: Equal air entry bilaterally. He has bilateral expiratory rhonchi. CARDIOVASCULAR: S1 and S2 normal. ABDOMEN: Benign. EXTREMITIES: 1+ pedal edema. IMPRESSION 1. COPD with exacerbation. He has a long history of smoking in the past and has intermittent wheezing. 2. Decompensated congestive heart failure. 3. Left basilar atelectasis versus infiltrate. He has no fever, cough or sputum. 4. Hypertension PLAN I discussed with the patient, we will give him a short course of steroids prednisone with Solu-Medrol 40 mg q.6 h. Continue aerosol treatment. If stable, we will check his pulmonary function study. Continue to diurese and if he is doing well by tomorrow, de-escalate antibiotic. Further treatment will dependent upon the course in the hospital. Thank you Dr. Back for this consultation. MD SONNY Persaud/MARTHA /7:29 PM /8:00 AM
--- NOTE | 2017-09-02 08:29 | HHI.FPPN ---
Subjective Remarks Patient seen and examined this morning. No acute events overnight per nursing repot. Patient states that he feels well and is ready to be discharged. This morning he had no episodes of "air hunger." He also reports that he has had no episodes of tachycardia, palpitations, or chest pain. He currently has no complaints and denies any fevers, chills, SOB, chest pain, NVD, ABD pain, or calf tenderness. (Mike Hopkins MD R2) Objective Vitals Vital Signs Date Time Temp Pulse Resp B/P (MAP) Pulse Ox O2 Delivery O2 Flow Rate FiO2 09/02/17 04:02 63 09/02/17 03:51 98.1 71 18 115/54 (74) 95 09/02/17 00:20 65 09/02/17 00:08 97.9 09/01/17 23:05 67 18 116/56 (76) 98 09/01/17 21:38 75 96 09/01/17 21:02 95 21 09/01/17 19:52 69 09/01/17 19:29 75 18 119/57 (77) 95 09/01/17 17:47 55 09/01/17 15:28 97.6 71 18 114/65 (81) 98 09/01/17 12:03 97.5 58 19 121/54 (76) 98 I/O 09/01/17 09/01/17 09/01/17 09/02/17 09/02/17 09/02/17 07:00 15:00 23:00 07:00 15:00 23:00 Output Total 1500 ml 325 ml Balance -1500 ml -325 ml Output Urine Total 1500 ml 325 ml # Voids 4 (Mike Hopkins MD R2) Result Diagram: 09/01/17 0442 08/31/17 0523 Objective Remarks GENERAL: Elderly male sitting up in bed in [facility]. SKIN: No rashes, ecchymoses or lesions. Cool and dry. HEENT: Atraumatic, normocephalic with EOMI. No rhinorrhea. MMM. No visible LAD or JVD. CARDIOVASCULAR: Regular rate and rhythm without 2/6 LAITH. 2+ BL radial pulses appreciated, no LE pulses appreciated due to edema, appropriate capillary refill. RESPIRATORY: Breath sounds BL have improved. Continues to have end expiratory wheezing with the occasional crackle. No increased WOB. Able to communicate in full sentences. GASTROINTESTINAL: Abdomen soft, non-tender, nondistended with +BS. No masses appreciated. MUSCULOSKELETAL: No cyanosis. No calf tenderness BL. Patient ambulating without assistance. LE: 2+ pedal edema to the lateral malleoli BL. R area tender to palpation at the medal malleoli radiating up to his mid calf has resolved, but patient now endorses same pain on the L malleoli. NEUROLOGICAL: Afocal. AAOx3. Normal speech and judgement. (Mike Hopkins MD R2) A/P Assessment and Plan 87 yr old with PMHx of HTN, CHF, CABG, and bovine aortic valve replacement presents with SOB and b/l lower extremity edema. Discharge Planning Pending Cardiology and Pulmonology recommendations recommendations (Mike Hopkins MD R2) Attending Attestation Pt. examined and case discussed with resident physicians I have read the above note and agree with the assessment/plan as discussed with me I was involved in all medical decision making for this patient Ramon Graves MD (Ramon Graves MD) Problem List: (1) Acute exacerbation of CHF (congestive heart failure) ICD Codes: I50.9 - Heart failure, unspecified Status: Acute Plan: -Continue Lasix 40 mg IV twice daily -Order written for strict I's and O's -Daily weights -Fluid restriction to 1.5 L and low-salt diet Cardiology consulted -Carvedilol 3.125 BID -Consult pulmonology, as below VQ scan ordered due to CKD: Low probability of PE BLE Doppler: Negative for DVT BL Echo 2D doppler showing decreased LV function with EF of 40-45% Troponins elevated at 0.19, 0.18, and 0.14 respectively EKG with ectopic atrial beats, however no T-wave inversions or ST changes -Heparin drip continued -BNP elevated at 404 -8 episodes of tachycardia on telemetry 09/01, otherwise asymptomatic sinus bradycardia Continue to monitor on cardiac telemetry Aspirin 81 mg PO daily Metoprolol Tartrate 25mg PO q12hr Morphine 2mg IV Push q30m PRN chest pain Nitroglycerin 0.4 mg SL q5m PRN chest pain Breathing treatments with albuterol scheduled (2) Hospital acquired PNA ICD Codes: J18.9 - Pneumonia, unspecified organism Status: Acute Plan: -Repeat chest x-ray to: Left basilar patchiness consistent with atelectasis or developing infiltrate -Clindamycin and Zosyn ordered for possible developing hospital acquired pneumonia (Patient refused Vancomycin) -Incentive spirometry, Acapella, and respiratory CPT ordered -Pulmonology consulted, appreciate recommendations -SoluMedrol 40mg Q6H -Bedside PFT -Deescalate ABX with clinical stabilization (3) Elevated serum creatinine ICD Codes: R79.89 - Other specified abnormal findings of blood chemistry Plan: -Cr elevated on admission -No fluids at this time due to edema and SOB -Continue to monitor (4) Open wound of chest wall with complication ICD Codes: S21.109A - Open wound of chest wall with complication Status: Acute Plan: Appears to be a fistula or draining tract from previous open heart surgery -Patient states that this has been there for years and he has been evaluated for this several times -Wound management consulted for proper dressing -Optilock 4x4 with absorb polymer (5) HTN (hypertension) ICD Codes: I10 - Essential (primary) hypertension Status: Chronic Plan: Metoprolol Tartrate 25mg PO q12hr (6) Nutrition, metabolism, and development symptoms ICD Codes: R63.8 - Other symptoms and signs concerning food and fluid intake Status: Acute Plan: Diet: Heart healthy diet with sodium and fluid restrictions Fluids: not indicated at this time Vitals q4h, monitor I & Os, cardiac telemetry PT ordered (Mike Hopkins MD R2) Problem Qualifiers (1) Acute exacerbation of CHF (congestive heart failure): Qualified Codes: I50.9 - Heart failure, unspecified (2) Open wound of chest wall with complication: Qualified Codes: S21.109S - Unspecified open wound of unspecified front wall of thorax without penetration into thoracic cavity, sequela (3) HTN (hypertension): Qualified Codes: I10 - Essential (primary) hypertension Mike Hopkins MD R2 Sep 02, 2017 08:29 Ramon Graves MD Sep 02, 2017 11:11
[2017-09-02] MEDS: SODIUM CHLORIDE 0.9% FLUSH 10 ML FLUSH IV FLUSH SCH (09:29)
[2017-09-02] MEDS: CARVEDILOL 3.125 MG TAB PO SCH (09:29)
[2017-09-02] MEDS: FUROSEMIDE 40 MG/4 ML VIAL IV PUSH SCH (09:29)
[2017-09-02] MEDS: ASPIRIN EC 81 MG TABEC PO SCH (09:29)
--- NOTE | 2017-09-02 10:05 | PD.CARD.PN ---
Subjective Subjective Remarks SOB improved. No CP. No further runs of tachycardia on tele in the past 24 hours. Edema improving (Ashley Langford) Objective Medications Current Medications Medications (Trade) Dose Ordered Sig/Devon Route Start Time Stop Time Status Last Admin (NS Flush) 2 ml BID IV FLUSH 08/29/17 21:00 09/02/17 09:29 (NS Flush) 2 ml UNSCH PRN IV FLUSH 08/29/17 17:15 08/30/17 18:14 (Nitrostat Sl) 0.4 mg Q5M PRN SL 08/29/17 17:15 (Ecotrin Ec) 81 mg DAILY PO 08/30/17 09:00 09/02/17 09:29 (Lasix Inj) 40 mg BID@,18 IV PUSH 08/30/17 09:00 09/02/17 09:29 (Albuterol Neb) 2.5 mg Q8HR NEB INH 08/30/17 08:30 09/01/17 23:00 (Duoneb Neb) 1 ampule Q8HR ALT NEB INH 08/30/17 12:00 09/02/17 05:39 (Coreg) 3.125 mg Q12HR PO 09/01/17 21:00 09/02/17 09:29 Piperacillin Sod/ Tazobactam Sod 100 ml @ 200 mls/hr Q6H IV 09/01/17 16:00 09/02/17 04:35 Clindamycin/ Sodium Chloride 50 ml @ 100 mls/hr Q6H IV 09/01/17 18:00 09/02/17 06:18 (SoluMEDROL INJ) 40 mg Q6H IV PUSH 09/01/17 20:00 09/02/17 09:29 Vital Signs / I&O Vital Signs Date Time Temp Pulse Resp B/P (MAP) Pulse Ox O2 Delivery O2 Flow Rate FiO2 09/02/17 08:33 98.0 72 18 132/62 (85) 95 09/02/17 04:02 63 09/02/17 03:51 98.1 71 18 115/54 (74) 95 09/02/17 00:20 65 09/02/17 00:08 97.9 09/01/17 23:05 67 18 116/56 (76) 98 09/01/17 21:38 75 96 09/01/17 21:02 95 21 09/01/17 19:52 69 09/01/17 19:29 75 18 119/57 (77) 95 09/01/17 17:47 55 09/01/17 15:28 97.6 71 18 114/65 (81) 98 09/01/17 12:03 97.5 58 19 121/54 (76) 98 I/O 09/01/17 09/01/17 09/01/17 09/02/17 09/02/17 09/02/17 07:00 15:00 23:00 07:00 15:00 23:00 Output Total 1500 ml 325 ml Balance -1500 ml -325 ml Output Urine Total 1500 ml 325 ml # Voids 4 Physical Exam GENERAL: Elderly male SKIN: Warm and dry. HEAD: Normocephalic. EYES: No scleral icterus. No injection or drainage. NECK: Supple, trachea midline. CARDIOVASCULAR: Regular rate and rhythm RESPIRATORY: Bilateral wheezing, right rales GASTROINTESTINAL: Abdomen soft, non-tender, nondistended. MUSCULOSKELETAL: No cyanosis, BLE edema BACK: Nontender without obvious deformity. Laboratory Laboratory Tests Test 09/01/17 16:23 Activated Partial Thromboplast Time 29.4 SEC Imaging Last 72 hours Impressions Lung Scan-VQ Nuclear Medicine 09/01/17 0000 Signed Impressions: Service Date/Time: Friday, September 01, 2017 12:26 - CONCLUSION: Low probability scan for pulmonary embolism Kahlil Lopez MD Lower Extremity Ultrasound 09/01/17 0000 Signed Impressions: Service Date/Time: Friday, September 01, 2017 10:03 - CONCLUSION: Negative for deep venous thrombosis. Jax Peraza MD FACR Chest X-Ray 09/01/17 0000 Signed Impressions: Service Date/Time: Friday, September 01, 2017 10:45 - CONCLUSION: Left basilar patchiness consistent with atelectasis and/or developing infiltrate. Deyvi Michael MD (Ashley Langford) Assessment and Plan Assessment and Plan Acute systolic CHF exacerbation Pneumonia Slightly elevated troponin X 3, history of cardiac cath 2010 prior to AVR. Told coronary arteries were "clean." Troponin elevated may be due to CKD Wide complex tachycardia on telemetry. Afib vs SVT. History of AV replacement Decreased LV function EF 40-45% Chronic non-healing chest wound, s/p muscle flap and hyperbaric treatments. PLAN: Continue diuresis PO, ASA and Coreg. Add lisinopril 2.5 mg daily The patient is clear from cardiac standpoint for discharge. We will complete ischemic work up and [facility] outpatient. The patient was seen and evaluated by Dr Back who completed face to face encounter and physical exam and participated in evaluation and management. (Ashley Langford) Assessment and Plan The exam, history, and the medical decision-making described in the above note were completed with the assistance of the mid-level provider. I reviewed and agree with the findings presented. I attest that I had a urat-[id number] encounter with the patient on the same day, and personally performed and documented my assessment and findings in the medical record. Still has Dr Jean tobar seeing re pnuemonia, CHF better. (Gaviota Back MD) Ashley Langford Sep 02, 2017 10:05 Gaviota Back MD Sep 02, 2017 18:05
[2017-09-02] MEDS ORDERED: PILL SPLITTER OTHER PRN (11:00)
[2017-09-02] MEDS ORDERED: ECASA81 PO (12:52)
[2017-09-02] MEDS ORDERED: LEVA750T9 PO (12:52)
[2017-09-02] MEDS ORDERED: LISI-519 PO (12:52)
[2017-09-02] MEDS ORDERED: CARV3.125 PO (12:52)
--- NOTE | 2017-09-02 12:55 | HHI.DCPOC ---
Discharge Care Plan Diagnosis: (1) Hospital acquired PNA (2) HTN (hypertension) (3) Acute exacerbation of CHF (congestive heart failure) (4) Open wound of chest wall with complication Goals to Promote Your Health * To prevent worsening of your condition and complications * To maintain your health at the optimal level Directions to Meet Your Goals Take your medications as prescribed Follow your dietary instruction Follow activity as directed Keep your appointments as scheduled Take your immunizations and boosters as scheduled If your symptoms worsen call your PCP, if no PCP go to Urgent Care Center or Emergency Room Smoking is Dangerous to Your Health. Avoid second hand smoke Call the 24-hour hour crisis hotline for domestic abuse at Erika Echols MD R1 Sep 02, 2017 12:55
--- NOTE | 2017-09-02 12:57 | HHI.DS ---
Discharge Summary Admission Date Aug 29, 2017 at 16:46 Admitting Diagnosis DYSPNEA, NONSTEMI (1) Acute exacerbation of CHF (congestive heart failure) Plan: -Continue Lasix 40 mg IV twice daily -Order written for strict I's and O's -Daily weights -Fluid restriction to 1.5 L and low-salt diet Cardiology consulted -Carvedilol 3.125 BID -Consult pulmonology, as below VQ scan ordered due to CKD: Low probability of PE BLE Doppler: Negative for DVT BL Echo 2D doppler showing decreased LV function with EF of 40-45% Troponins elevated at 0.19, 0.18, and 0.14 respectively EKG with ectopic atrial beats, however no T-wave inversions or ST changes -Heparin drip continued -BNP elevated at 404 -8 episodes of tachycardia on telemetry 09/01, otherwise asymptomatic sinus bradycardia Continue to monitor on cardiac telemetry Aspirin 81 mg PO daily Metoprolol Tartrate 25mg PO q12hr Morphine 2mg IV Push q30m PRN chest pain Nitroglycerin 0.4 mg SL q5m PRN chest pain Breathing treatments with albuterol scheduled ICD Codes: I50.9 - Heart failure, unspecified Status: Acute (2) Hospital acquired PNA Plan: -Repeat chest x-ray to: Left basilar patchiness consistent with atelectasis or developing infiltrate -Clindamycin and Zosyn ordered for possible developing hospital acquired pneumonia (Patient refused Vancomycin) -Incentive spirometry, Acapella, and respiratory CPT ordered -Pulmonology consulted, appreciate recommendations -SoluMedrol 40mg Q6H -Bedside PFT -Deescalate ABX with clinical stabilization ICD Codes: J18.9 - Pneumonia, unspecified organism Status: Acute (3) Elevated serum creatinine Plan: -Cr elevated on admission -No fluids at this time due to edema and SOB -Continue to monitor ICD Codes: R79.89 - Other specified abnormal findings of blood chemistry (4) Open wound of chest wall with complication Plan: Appears to be a fistula or draining tract from previous open heart surgery -Patient states that this has been there for years and he has been evaluated for this several times -Wound management consulted for proper dressing -Optilock 4x4 with absorb polymer ICD Codes: S21.109A - Open wound of chest wall with complication Status: Acute (5) HTN (hypertension) Plan: Metoprolol Tartrate 25mg PO q12hr ICD Codes: I10 - Essential (primary) hypertension Status: Chronic (6) Nutrition, metabolism, and development symptoms Plan: Diet: Heart healthy diet with sodium and fluid restrictions Fluids: not indicated at this time Vitals q4h, monitor I & Os, cardiac telemetry PT ordered ICD Codes: R63.8 - Other symptoms and signs concerning food and fluid intake Status: Acute Brief History Patient remains afebrile and normotensive, with no acute events overnight and states that he feels relatively well this morning, however still feels short of breath and unable to take a deep breath. He did receive a dose of Lasix overnight and states that he urinated out "a jug" and that he feels that his lower extremity edema has improved. He denies any overt chest pain or chest pressure but endorses continued shortness of breath. He denies diaphoresis. He denies nausea or vomiting. He denies fevers or chills. In summary, this is an 87-year-old male with a history of a CABG and bovine aortic valve replacement as well as CHF who presents to the emergency department with increasing shortness of breath. This is been going on and been progressive for 1 week after feeling a self resolving episode of substernal chest discomfort. He has had progressive orthopnea over the last 2 weeks as well as bilateral leg swelling for the last 3 days. Bilingual Recruiter: Dr. Back CBC/BMP: 09/01/17 0442 08/31/17 0523 Significant Findings Laboratory Tests Test 08/30/17 19:30 08/31/17 05:23 08/31/17 14:39 08/31/17 20:05 Activated Partial Thromboplast Time 47.4 SEC (24.3-30.1) 31.7 SEC (24.3-30.1) 36.4 SEC (24.3-30.1) 39.2 SEC (24.3-30.1) Red Blood Count 4.13 MIL/MM3 (4.50-5.90) Hematocrit 37.2 % (39.0-51.0) Platelet Count 115 TH/MM3 (150-450) Blood Urea Nitrogen 32 MG/DL (7-18) Creatinine 1.31 MG/DL (0.60-1.30) Calcium Level 8.3 MG/DL (8.5-10.1) Estimat Glomerular Filtration Rate 52 ML/MIN (>89) Test 09/01/17 03:05 09/01/17 04:42 09/01/17 09:52 09/01/17 16:23 Activated Partial Thromboplast Time 52.2 SEC (24.3-30.1) 52.4 SEC (24.3-30.1) Red Blood Count 4.18 MIL/MM3 (4.50-5.90) Hematocrit 37.8 % (39.0-51.0) Platelet Count 113 TH/MM3 (150-450) Test 09/02/17 12:35 PE at Discharge GENERAL: Elderly male sitting up in bed in [facility]. SKIN: No rashes, ecchymoses or lesions. Cool and dry. HEENT: Atraumatic, normocephalic with EOMI. No rhinorrhea. MMM. No visible LAD or JVD. CARDIOVASCULAR: Regular rate and rhythm without 2/6 LAITH. 2+ BL radial pulses appreciated, no LE pulses appreciated due to edema, appropriate capillary refill. RESPIRATORY: Breath sounds BL have improved. Continues to have end expiratory wheezing with the occasional crackle. No increased WOB. Able to communicate in full sentences. GASTROINTESTINAL: Abdomen soft, non-tender, nondistended with +BS. No masses appreciated. MUSCULOSKELETAL: No cyanosis. No calf tenderness BL. Patient ambulating without assistance. LE: 2+ pedal edema to the lateral malleoli BL. R area tender to palpation at the medal malleoli radiating up to his mid calf has resolved, but patient now endorses same pain on the L malleoli. NEUROLOGICAL: Afocal. AAOx3. Normal speech and judgement. Erika Echols MD R1 Sep 02, 2017 12:57
[2017-09-02 13:18] LABS: ALBUMIN 3.1 GM/DL (3.4-5.0); ALT (GPT) 33 U/L (12-78); AST (GOT) 47 U/L (15-37); BICARBONATE 30.6 MEQ/L (21.0-32.0); BLOOD UREA NITROGEN 30 MG/DL (7-18); CALCIUM 8.7 MG/DL (8.5-10.1); CHLORIDE 101 MEQ/L (98-107); CREATININE 1.56 MG/DL (0.60-1.30); GLOMERULAR FILTRATION RATE 43 ML/MIN (>89); GLUCOSE,RANDOM 146 MG/DL (74-106); SODIUM (NA) 138 MEQ/L (136-145)
[2017-09-02 13:20] LABS: ALKALINE PHOSPHATASE 65 U/L (45-117); TOTAL BILIRUBIN ADULT 0.7 MG/DL (0.2-1.0); TOTAL PROTEIN 7.2 GM/DL (6.4-8.2)
[2017-09-02] MEDS ORDERED: PRED20 PO (16:28)
[2017-09-03] MEDS ORDERED: LISINOPRIL 5 MG TAB PO SCH (09:00)
--- NOTE | 2017-09-03 09:37 | RSPPFT ---
DATE OF PROCEDURE: 09/02/17 COMMENTS: Spirometry shows FVC of 2.0 at 51% of predicted, FEV1 of 1.2 at 41%, FEV1/FVC ratio is decreased. Flow is decreased at FEF 25, FEF 50 and FEF 25-75. There is no response after bronchodilator treatment. Flow volume loop indicates an obstructive pattern. IMPRESSION: 1. Moderately severe obstructive lung disease. 2. No response after bronchodilator treatment.
[2017-09-04] MEDS ORDERED: PHARMACY ORDERED LAB ONE (16:45)
== END 2017-09-02 18:18 | disposition home or self-care (01) ==
LOC: NEPC 14:25 → NEDA 16:46 → NEPGCP 19:00 → NEPHCDU 08-30 18:29
PROVIDERS: ADMIT Family Medicine; ATTEND Family Medicine
DX: I13.0 Hypertensive heart and chronic kidney disease with heart failure and stage 1 through stage 4 chronic kidney disease, or unspecified chronic kidney disease (principal); I50.22 Chronic systolic (congestive) heart failure; N18.9 Chronic kidney disease, unspecified; J44.1 Chronic obstructive pulmonary disease with (acute) exacerbation; J44.0 Chronic obstructive pulmonary disease with (acute) lower respiratory infection; J18.9 Pneumonia, unspecified organism; R79.89 Other specified abnormal findings of blood chemistry; S21.109A Unspecified open wound of unspecified front wall of thorax without penetration into thoracic cavity, initial encounter; R63.8 Other symptoms and signs concerning food and fluid intake; R00.0 Tachycardia, unspecified; I44.0 Atrioventricular block, first degree; J98.11 Atelectasis; R94.31 Abnormal electrocardiogram [ECG] [EKG]; Z95.1 Presence of aortocoronary bypass graft; Z95.3 Presence of xenogenic heart valve; Z87.891 Personal history of nicotine dependence; Z85.828 Personal history of other malignant neoplasm of skin; X58.XXXA Exposure to other specified factors, initial encounter
CPT/HCPCS: 71045; 78582; 80048; 80053; 80061; 82550; 82552; 83690; 83880; 84484; 85025; 85027; 85610; 85730; 93005; 93306; 93970; 94060; 94150; 94640; 94664; 94667; 96365; 96366; 96367; 96372; 96375; 96376; 97163; 99291; A9540; A9567; G0378; G8987; G8988; J1644; J1650; J1940; J2543; J2920; J2930; J7613

== ENCOUNTER 2017-12-30 10:00 | Emergency (ER) | payer MEDICARE, OTHER ==
[~2017-12-30] VITALS: Ht 182.9 cm; Wt 91.0 kg
[~2017-12-30 10:00] MED LIST changes: -ASPI81TA82 PO; +CARV3.125 PO; +ECASA81 PO; +FURO1TAB62 PO; +LEVA750T9 PO; +LISI-519 PO; -METO50TA PO; +PRED20 PO; -STOO100C PO; +VENTAER INH
[2017-12-30 10:11] VITALS: BP 151/70; PULSE 81; RESP 28; TEMP 97.3; O2SAT 95
[2017-12-30] MEDS ORDERED: BISACODYL 10 MG SUPP RECTAL ONE (11:00)
[2017-12-30] MEDS ORDERED: SOD PHOSPHATE/SOD BIPHOSPHATE (ADULT) ENEMA 133ML RECTAL ONE (11:45)
--- NOTE | 2017-12-30 12:14 | PD ---
HPI Chief Complaint: GI Complaint Time Seen by Provider: 10:45 Travel History International Travel<30 days: No Contact w/Intl Traveler<30days: No Traveled to known affect area: No History of Present Illness HPI This 87-year-old male is complaining of constipation. Says he has not had a bowel movement for 2 or 3 days. He has had some mild problems like this in the past. He is not on any pain medication. There is been no vomiting. He did take some Colace without much response. He has not had any fever. His abdomen is not hurting. He does have pain in the rectum and he noted that he had a firm mass of stool in the rectal rectum. PFSH Past Medical History AAA: Yes Cancer: Yes (BASAL CELL) Cardiovascular Problems: Yes (HX OF LEAKY AORTIC VALVE) Chemotherapy: No Congestive Heart Failure: Yes Diabetes: No Diminished Hearing: No Endocrine: No Gastrointestinal Disorders: Yes (GALLSTONES, hx of constipation) Genitourinary: Yes (enlarged prostate) Hepatitis: No Hiatal Hernia: No Hypertension: Yes Immune Disorder: No Kidney Stones: Yes Medical other: Yes (hx of edema in bilat legs) Musculoskeletal: No Neurologic: No Psychiatric: No Respiratory: No Immunizations Current: Yes Radiation Therapy: No Tetanus Vaccination: Unknown Influenza Vaccination: No Past Surgical History Abdominal Aneurysm Repair: Yes Abdominal Surgery: Yes (LEFT INGUINAL HERNIA) Body Medical Devices: BOVINE AORTIC VALVE, STERNAL INFECTION Cardiac Surgery: Yes (AVR) Ear Surgery: No Eye Surgery: Yes (MARBELLA CATARACTS) Genitourinary Surgery: Yes (LITHOTRIPSY, STONES REMOVED) Gynecologic Surgery: No Oral Surgery: Yes (TONSILLECTOMY) Thoracic Surgery: Yes (DEBRIDED CHEST INFECTION, STERNAL WIRES OUT) Tonsillectomy: Yes Valve Replacement: Yes (BOVINE AORTIC VALVE REPLACEMENT 2011) Other Surgery: Yes (HYDROCELE) Social History Alcohol Use: Yes (occas, mix drinks) Tobacco Use: No (QUIT 30 + YEARS AGO) Substance Use: No Allergies-Medications (Allergen,Severity, Reaction): Coded Allergies: No Known Allergies (Unverified Allergy, Unknown, 12/30/17) Reported Meds & Prescriptions Reported Meds & Active Scripts Active Aspirin DR (Aspirin) 81 Mg Tabdr 81 Mg PO DAILY Lisinopril 5 Mg Tab 2.5 Mg PO DAILY Coreg (Carvedilol) 3.125 Mg Tab 3.125 Mg PO Q12HR Reported Lasix (Furosemide) 20 Mg Tab 20 Mg PO DAILY Review of Systems Except as stated in HPI: all other systems reviewed are Neg General / Constitutional: No: Fever, Chills Gastrointestinal: Positive: Constipation, No: Vomiting, Diarrhea, Abdominal Pain Neurologic: No: Weakness Physical Exam Narrative GENERAL: Well-developed male SKIN: Focused skin assessment warm/dry. HEAD: Atraumatic. Normocephalic. EYES: Pupils equal and round. No scleral icterus. No injection or drainage. ENT: No nasal bleeding or discharge. Mucous membranes pink and moist. NECK: Trachea midline. No JVD. CARDIOVASCULAR: Regular rate and rhythm. No murmur appreciated. RESPIRATORY: No accessory muscle use. Clear to auscultation. Breath sounds equal bilaterally. GASTROINTESTINAL: Abdomen soft, non-tender, nondistended. Hepatic and splenic margins not palpable. On rectal exam was there is a hard mass of stool present. I have tried to disimpact him but he did not tolerate this procedure well and asked me to stop. MUSCULOSKELETAL: No obvious deformities. No clubbing. No cyanosis. No edema. NEUROLOGICAL: Awake and alert. No obvious cranial nerve deficits. Motor grossly within normal limits. Normal speech. PSYCHIATRIC: Appropriate mood and affect; insight and judgment normal. Data Data Last Documented VS Vital Signs Date Time Temp Pulse Resp B/P (MAP) Pulse Ox O2 Delivery O2 Flow Rate FiO2 12/30/17 10:34 16 12/30/17 10:11 97.3 81 151/70 (97) 95 Orders Orders Bisacodyl Supp (Dulcolax Supp) (12/30/17 11:00) Fleets Enema PRN (12/30/17 11:30) Fleets Enema (Adult) (Fleets Enema (Adul (12/30/17 11:45) MDM Medical Decision Making Medical Screen Exam Complete: Yes Emergency Medical Condition: Yes Medical Record Reviewed: Yes Differential Diagnosis Differential includes fecal impaction Narrative Course Patient was given a fleets enema with good results. He is stable for discharge. Diagnosis Primary Impression: Fecal impaction Disposition: 01 DISCHARGE HOME Condition: Stable Pritesh Noel MD Dec 30, 2017 12:14
== END 2017-12-30 13:05 | disposition home or self-care (01) ==
LOC: PHED 10:00
DX: K56.41 Fecal impaction (principal); I11.0 Hypertensive heart disease with heart failure; I50.9 Heart failure, unspecified; Z87.442 Personal history of urinary calculi; Z79.899 Other long term (current) drug therapy; Z87.891 Personal history of nicotine dependence
CPT/HCPCS: 99284

== ENCOUNTER 2018-03-05 11:00 | Observation (INO) ==
[2018-03-05] MEDS ORDERED: Sod Chloride 0.9% Inj 1,000 ML IV.CONT SCH (11:30)
--- NOTE | 2018-03-05 11:56 | XR ---
EXAM DATE: 03/05/2018 11:51 AM EDT AGE/SEX: 88 years / Male INDICATIONS: Shortness of breath and cough. CLINICAL DATA: This is the patient's initial encounter. Patient reports that signs and symptoms have been present for > 1 year and indicates a pain score of 0/10. MEDICAL/SURGICAL HISTORY: Congestive heart failure. Chronic obstructive pulmonary disease. Hy pertension. . Valve replacement. COMPARISON: . FINDINGS: Very mild bibasilar atelectasis. No definite pneumonia. No pleural effusion or pneumothorax. Heart size stable, within normal limits. Valve replacement again noted. CONCLUSION: Mild bibasilar atelectasis. Electronically signed by: Kahlil Sanchez MD 03/05/2018 11:55 AM EDT
--- NOTE | 2018-03-05 12:11 | ED ---
HPI General Chief complaint: Neuro Symptoms/Deficit Stated complaint: headache/confusion Time Seen by Provider: 03/05/18 11:17 Source: patient Mode of arrival: ambulatory Limitations: no limitations History of Present Illness HPI narrative: 88-year-old male the presents to the ED for evaluation of confusion and headache. Per patient symptoms started on Friday night. Per patient he developed a headache on Friday. He is never really had headaches per patient. Per patient he was concerned and he told his that he thought he was having a stroke. He then he had any other symptoms however. Per patient the headache was not severe but pressure-like 3 out of 10. He states that he has had episodes of blurry vision to come and go but this has been months ago and has not had one recently. Per patient on Friday he woke up and he does see his normal crossword puzzles like he could not figure out how to work the crossword puzzle. Per patient this is very unusual for him as he does this on a daily basis for years. He did well except he still had the headache and at night he decided to do a play of Sezion which she does almost every night. Per patient he could not figure out how to play the game. This per patient has never happened before as well. Patient continued to have the headache and came today to get evaluated. Patient denies any symptoms today. He does have a history of CHF, high cholesterol, hypertension. No history of CVA or ACS. States that the headache currently is 2 out of 10 and more like a pressure on the forehead. No fevers chills or sweats. No cough or runny nose. No numbness or tingling to the body. No weakness to the body. Related Data Home Medications Medication Instructions Recorded Confirmed torsemide 20 mg PO DAILY 03/05/18 03/05/18 Allergies Allergy/AdvReac Type Severity Reaction Status Date / Time No Known Allergies Allergy Unverified 03/04/18 14:10 Review of Systems ROS: all other systems reviewed are negative PMFSH History History Provided By: Patient Social History Social History Substance History: No History of Abuse Second Hand Smoke Exposure: No Smoking Status: Former smoker How Often Do You Have a Drink Containing Alcohol: Monthly or less [facility] within the Last 8 Weeks: No Recent Out of Country Travel within the Last 8 Weeks: No Exam Narrative Exam Narrative: GENERAL: Well-appearing SKIN: Focused skin assessment warm/dry. HEAD: Atraumatic. Normocephalic. EYES: Pupils equal and round 4 mms reactive to light and accommodation. No scleral icterus. No injection or drainage. ENT: No nasal bleeding or discharge. Mucous membranes pink and moist. Tongue is midline. No uvula deviation. NECK: Trachea midline. No JVD. CARDIOVASCULAR: Regular rate and rhythm. No murmur appreciated. RESPIRATORY: No accessory muscle use. Clear to auscultation. Breath sounds equal bilaterally. GASTROINTESTINAL: Abdomen soft, non-tender, nondistended. Hepatic and splenic margins not palpable. MUSCULOSKELETAL: No obvious deformities. No clubbing. No cyanosis. No edema. Full range of motion of the upper and lower extremities bilaterally. 2+ pulses bilaterally. NEUROLOGICAL: Awake and alert. No obvious cranial nerve deficits. Motor grossly within normal limits. Normal speech. PSYCHIATRIC: Appropriate mood and affect; insight and judgment normal. Course Initial Documented Vital Signs Temperature 98.0 F 03/05/18 11:06 Pulse Rate 76 03/05/18 11:06 Respiratory Rate 16 03/05/18 11:06 Blood Pressure 164/67 H 03/05/18 11:06 Pulse Oximetry 97 03/05/18 11:06 Last Documented Vital Signs Temperature 98.0 F 03/05/18 11:06 Pulse Rate 89 03/05/18 11:28 Respiratory Rate 16 03/05/18 11:06 Blood Pressure 164/67 H 03/05/18 11:06 Pulse Oximetry 99 03/05/18 11:28 Medical Decision Making LUIS MIGUEL Attestation LUSI MIGUEL supervised visit: Yes Attestation: I, Dr. samayoa, have reviewed the advance practice practitioner's documentation and am in agreement, met with the patient face to face, made the diagnosis, and the medical decision making was done by me. *My assessment and Findings: 88-year-old male with an episode of confusion yesterday that is now resolved without emergent findings. Patient agrees to observation for further workup MDM Narrative Medical decision making narrative: 88-year-old male the presents to the ED for evaluation of episode of confusion with headache. Patient was properly examined and was found to have signs and symptoms of unclear etiology. Definite concern for TIA versus CVA. Labs and imaging order. Labs and imaging showed no sign of acute disease. This time recommendation is for admission for possible TIA. My attending agrees with plan. Patient and family agree with plan. Patient understands reasoning for why he needs to be admitted. Case discussed with the residents and agrees with admission. Differential Diagnosis Differential Diagnosis: CVA versus TIA versus confusion versus altered mental status versus electrolyte abnormality versus ACS Medical Records Medical records reviewed: Yes I reviewed the patient's medical records. Lab Data Lab results reviewed: Yes I reviewed the patient's lab results. Lab results narrative: troponin and CKMB negative Result diagrams: 03/05/18 12:10 03/05/18 12:10 Lab Results 03/05/18 03/05/18 03/05/18 Range/Units 12:10 12:10 12:10 WBC 6.9 (4.0-11.0) th/mm3 RBC 4.61 (4.50-5.90) mil/mm3 Hgb 14.2 (13.0-17.0) gm/dL Hct 42.5 (39.0-51.0) % MCV 92.1 (80.0-100.0) fL MCH 30.9 (27.0-34.0) pg MCHC 33.5 (32.0-36.0) % RDW 15.0 (11.6-17.2) % Plt Count 127 L (150-450) th/mm3 MPV 8.5 (7.0-11.0) fL Neut % (Auto) 69.2 (16.0-70.0) % Lymph % (Auto) 15.3 (9.0-44.0) % [place] % (Auto) 7.1 (0.0-8.0) % Eos % (Auto) 7.4 H (0.0-4.0) % Baso % (Auto) 1.0 (0.0-2.0) % Neut # (Auto) 4.7 (1.8-7.7) th/mm3 Lymph # (Auto) 1.0 (1.0-4.8) th/mm3 [place] # (Auto) 0.5 (0.0-0.9) th/mm3 Eos # (Auto) 0.5 H (0.0-0.4) th/mm3 Baso # (Auto) 0.1 (0.0-0.2) th/mm3 WBC Differential . Differential Comment Auto diff final PT 10.4 (9.8-11.6) sec INR 1.0 Ratio APTT 25.2 (24.3-30.1) sec Sodium 142 (136-145) meq/L Potassium 4.6 (3.5-5.1) meq/L Chloride 109 H (98-107) meq/L Carbon Dioxide 28.6 (21.0-32.0) meq/L Anion Gap 4 L (5-15) meq/L BUN 22 H (7-18) mg/dL Creatinine 1.23 (0.60-1.30) mg/dL Estimated GFR 56 L (>89) mL/min Random Glucose 82 (74-106) mg/dL Calcium 9.4 (8.5-10.1) mg/dL Total Creatine Kinase 56 (39-308) U/L Troponin I Less than 0.02 L (0.02-0.05) ng/mL Blood Type Blood Type Recheck Antibody Screen 03/05/18 Range/Units 12:10 WBC (4.0-11.0) th/mm3 RBC (4.50-5.90) mil/mm3 Hgb (13.0-17.0) gm/dL Hct (39.0-51.0) % MCV (80.0-100.0) fL MCH (27.0-34.0) pg MCHC (32.0-36.0) % RDW (11.6-17.2) % Plt Count (150-450) th/mm3 MPV (7.0-11.0) fL Neut % (Auto) (16.0-70.0) % Lymph % (Auto) (9.0-44.0) % [place] % (Auto) (0.0-8.0) % Eos % (Auto) (0.0-4.0) % Baso % (Auto) (0.0-2.0) % Neut # (Auto) (1.8-7.7) th/mm3 Lymph # (Auto) (1.0-4.8) th/mm3 [place] # (Auto) (0.0-0.9) th/mm3 Eos # (Auto) (0.0-0.4) th/mm3 Baso # (Auto) (0.0-0.2) th/mm3 WBC Differential Differential Comment PT (9.8-11.6) sec INR Ratio APTT (24.3-30.1) sec Sodium (136-145) meq/L Potassium (3.5-5.1) meq/L Chloride (98-107) meq/L Carbon Dioxide (21.0-32.0) meq/L Anion Gap (5-15) meq/L BUN (7-18) mg/dL Creatinine (0.60-1.30) mg/dL Estimated GFR (>89) mL/min Random Glucose (74-106) mg/dL Calcium (8.5-10.1) mg/dL Total Creatine Kinase (39-308) U/L Troponin I (0.02-0.05) ng/mL Blood Type A Positive Blood Type Recheck Required Antibody Screen Negative Imaging Data Attestation: I personally reviewed and interpreted this imaging study as follows : Radiologist's impression: Chest X-Ray 03/05/18 11:28 CONCLUSION: Mild bibasilar atelectasis. Head CT 03/05/18 11:28 CONCLUSION: 1. No acute intracranial abnormality demonstrated. 2. Mild chronic white matter changes. 3. Chronic sinus disease. . ECG Data EKG Prior to Arrival: No Attestation: I personally reviewed and interpreted this ECG as follows: Interpretation: EKG shows sinus rhythm with no sign of acute ischemia or arrhythmia. No ST elevations. Read by me and attending. Discharge Plan Discharge Disposition Patient Disposition: 30 Still Patient Discharge Details Diagnosis: Transient cerebral ischemia Physicians Team ED Provider: Roma Samayoa ED Midlevel Provider: Srinivasan Gross Primary Care Provider: Dung Man Attending Provider: Truong Schmidt Status ED Status: Admitted Observation Patient
[2018-03-05 12:30] LABS: Baso # (Auto) 0.1 th/mm3 (0.0-0.2); Eos # (Auto) 0.5 th/mm3 (0.0-0.4); Eos % (Auto) 7.4 % (0.0-4.0); Hematocrit 42.5 % (39.0-51.0); Hemoglobin 14.2 gm/dL (13.0-17.0); Lymph % (Auto) 15.3 % (9.0-44.0); Mean Corpuscular HGB Conc 33.5 % (32.0-36.0); Mean Corpuscular Hemoglobin 30.9 pg (27.0-34.0); Mean Corpuscular Volume 92.1 fL (80.0-100.0); Mean Platelet Volume 8.5 fL (7.0-11.0); Mono # (Auto) 0.5 th/mm3 (0.0-0.9); Mono % (Auto) 7.1 % (0.0-8.0); Neut # (Auto) 4.7 th/mm3 (1.8-7.7); Neut % (Auto) 69.2 % (16.0-70.0); Platelet Count 127 th/mm3 (150-450); Red Blood Count 4.61 mil/mm3 (4.50-5.90); White Blood Count 6.9 th/mm3 (4.0-11.0)
[2018-03-05 12:42] LABS: Activated Partial Thrombo Time 25.2 sec (24.3-30.1); Prothrombin Time 10.4 sec (9.8-11.6)
[2018-03-05 12:52] LABS: Anion Gap 4 meq/L (5-15); Blood Urea Nitrogen 22 mg/dL (7-18); Calcium 9.4 mg/dL (8.5-10.1); Carbon Dioxide 28.6 meq/L (21.0-32.0); Chloride 109 meq/L (98-107); Glomerular Filtration Rate 56 mL/min (>89); Glucose,Random 82 mg/dL (74-106); Potassium 4.6 meq/L (3.5-5.1); Sodium 142 meq/L (136-145)
[2018-03-05 13:04] LABS: Creatine Kinase 56 U/L (39-308)
--- NOTE | 2018-03-05 13:16 | CT ---
EXAM DATE: 03/05/2018 1:00 PM EDT AGE/SEX: 88 years / Male INDICATIONS: Difficulty coming up with words Friday, now mild pressure headache CLINICAL DATA: This is the patient's initial encounter. Patient reports that signs and symptoms have been present for 2 days and indicates a pain score of 4/10. MEDICAL/SURGICAL HISTORY: None. None. RADIATION DOSE: 56.35 CTDI (mGy) COMPARISON: [facility], CT SINUSES W/O CONTRAST, 08/23/2014. . TECHNIQUE: CT of the head without contrast. Using automated exposure control and adjustment of the mA and/or kV according to patient size, radiation dose was kept as low as reasonably achievable to ob tain optimal diagnostic quality images. DICOM format image data is available electronically for revi ew and comparison. FINDINGS: Cerebrum: The ventricles are normal for age. No evidence of midline shift, mass lesion, hemorrhage or acute infarction. No extraaxial fluid collections are seen. Posterior Fossa: The cerebellum and brainstem are intact. The 4th ventricle is midline. The cerebe llopontine angle is unremarkable. Extracranial: Mucoperiosteal thickening and mucus retention cysts again seen of the visualized paran micah sinuses, appears modestly improved in the interim. Skull: The calvaria is intact. No evidence of skull fracture. CONCLUSION: 1. No acute intracranial abnormality demonstrated. 2. Mild chronic white matter changes. 3. Chronic sinus disease. . Electronically signed by: Kahlil Sanchez MD 03/05/2018 1:14 PM EDT
--- NOTE | 2018-03-05 13:57 | P.HPFP ---
History of Present Illness Primary Care Physician: Dung Man MD History of Present Illness: Mr. Koch is an 88-year-old male with past medical history of CHF who presents for 2 noted episodes of confusion on . He reports that morning he couldn't remember how to play his Sudoku or his crossword puzzles. He recovered and remembered how to play them but had an episode again that night where he forgot how to play his games. That night he developed a sharp headache sharp in the middle of his head. He denies any motor dysfunction or apraxia. Denies any history of TIA/DVT/PE. He denies any diplopia, chest pain, shortness of breath, nausea, vomiting, numbness, tingling, weakness. Headache has lessened to a dull throb. PMH: CHF followed Dr Braun Sx: Cardiac cath, 2010 Valve replacement, 2010 Hernia repair Lithotripsy Meds: Torsemide FMH: Mother- stomach cancer Sister- throat cancer Social: EtOh: Social Former smoker >30yrs, smoked 1ppd Denies Recreational drugs - Diagnosis (1) Transient cerebral ischemia (2) CHF (congestive heart failure) (3) Nutrition, metabolism, and development symptoms Review of Systems Constitutional: [Denies] chills, [Denies] fever(s), [Denies] headache(s), [ Denies]weakness, [Denies] fatigue Eyes: [Denies] blurry vision, [Denies] change in vision, [Denies] double vision Ears, Nose, Mouth, and Throat:[Denies] ear pain, reports nasal congestion, [ Denies] nosebleed [Denies] sore throat, [Denies] hoarseness Cardiovascular: [Denies] lightheadedness, [Denies] chest pain, [Denies] palpitations, [Denies] 10 [Denies] rapid heart rate Respiratory: [Denies] cough, [Denies] shortness of breath Gastrointestinal: [Denies] abdominal pain,[Denies] cramping, [Denies] black, tarry stools, [Denies] bright, red blood in stools, [Denies] nausea, [Denies] vomiting, [Denies] bloating, [Denies] changes in bowel habits Genitourinary: [Denies] blood in urine, [Denies] painful urination, [Denies] urinary urgency, [Denies] urinary frequency Musculoskeletal: [Denies] body aches, [Denies] joint pains, [Denies] muscle weakness Neurologic: [Denies] numbness, [Denies] tingling, [Denies] dizziness PMFSH - History History Provided By: Patient - Tobacco History Second Hand Smoke Exposure: No Smoking Status: Former smoker - Alcohol History How Often Do You Have a Drink Containing Alcohol: Monthly or less - Substance Use History Substance History: No History of Abuse - Travel History Recent Travel in the [facility] Within the Last 8 Weeks: No Recent Travel Out of the Country Within the Last 8 Weeks: No - Immunization History Tetanus Immunization: Unsure Hx Influenza Vaccine This Season: No Medications and Allergies Active Medications: Active Medications Sodium Chloride (Ns Inj) 1,000 mls @ 70 mls/hr IV.CONT .[id number] CHAYO Stop: 03/06/18 01:47 Sodium Chloride (Ns Flush) 2 ml IV.FLUSH PRN PRN PRN Reason: FLUSH AFTER USING IV ACCESS Allergies Allergy/AdvReac Type Severity Reaction Status Date / Time No Known Allergies Allergy Unverified 03/04/18 14:10 Home Medications Medication Instructions Recorded Confirmed Type torsemide 20 mg PO DAILY 03/05/18 03/05/18 History Exam Vital signs: Vital Signs 03/05/18 11:06 03/05/18 11:28 Temperature 98.0 F Pulse Rate 76 89 Respiratory Rate 16 Blood Pressure 164/67 H Pulse Oximetry 97 99 Intake & Output 03/04/18 03/05/18 03/05/18 18:59 06:59 18:59 Weight 92.986 kg Narrative: GENERAL: Adult male resting comfortably in bed HEAD: Normocephalic. NECK: No JVD or lymphadenopathy. CARDIOVASCULAR: Systolic murmur 3/6. Regular rate and rhythm without gallops, or rubs. Bilateral bruits over carotids. RESPIRATORY: Breath sounds equal bilaterally. No wheezes or rhonchi heard. No accessory muscle use. GASTROINTESTINAL: Abdomen soft, non-tender, nondistended. Normoactive bowel sounds. MUSCULOSKELETAL: No cyanosis. Pedal edema bilaterally, 1+, non pitting. Neurological: CN 2-12 grossly intact. Sensation intact bilaterally. Strength 5/ 5 in upper and lower extremities. AAOx3. Speech normal. Results - Labs Result diagrams: 03/05/18 12:10 03/05/18 12:10 Abnormal lab results 03/05/18 03/05/18 Range/Units 12:10 12:10 Plt Count 127 L (150-450) th/mm3 Eos % (Auto) 7.4 H (0.0-4.0) % Eos # (Auto) 0.5 H (0.0-0.4) th/mm3 Chloride 109 H (98-107) meq/L Anion Gap 4 L (5-15) meq/L BUN 22 H (7-18) mg/dL Estimated GFR 56 L (>89) mL/min Troponin I Less than 0.02 L (0.02-0.05) ng/mL Short CBC 03/05/18 Range/Units 12:10 WBC 6.9 (4.0-11.0) th/mm3 Hgb 14.2 (13.0-17.0) gm/dL Hct 42.5 (39.0-51.0) % Plt Count 127 L (150-450) th/mm3 BMP 03/05/18 12:10 Sodium 142 Potassium 4.6 Chloride 109 H Carbon Dioxide 28.6 BUN 22 H Creatinine 1.23 Calcium 9.4 Cardiac Enzymes 03/05/18 Range/Units 12:10 Total Creatine Kinase 56 (39-308) U/L Troponin I Less than 0.02 L (0.02-0.05) ng/mL - Imaging Impressions Chest X-Ray 03/05/18 11:28 CONCLUSION: Mild bibasilar atelectasis. Head CT 03/05/18 11:28 CONCLUSION: 1. No acute intracranial abnormality demonstrated. 2. Mild chronic white matter changes. 3. Chronic sinus disease. . Caprini VTE Risk Assessment Caprini VTE Risk Assessment: Moderate/High Risk (score >= 2) Caprini Risk Assessment Model: Point Value = 1 Point Value = 2 Point Value = 3 Point Value = 5 Age 41-60 Minor surgery BMI > 25 kg/m2 Swollen legs Varicose veins or History of unexplained or recurrent spontaneous Oral contraceptives or hormone replacement Sepsis (< 1 month) Serious lung disease, including pneumonia (< 1 month) Abnormal pulmonary function Acute myocardial infarction Congestive heart failure (< 1 month) History of inflammatory bowel disease Medical patient at bed rest Age 61-74 Arthroscopic surgery Major open surgery (> 45 min) Laparoscopic surgery (> 45 min) Malignancy Confined to bed (> 72 hours) Immobilizing plaster cast Central venous access Age >= 75 History of VTE Family history of VTE Factor V Leiden Prothrombin [id number] Lupus anticoagulant Anticardiolipin antibodies Elevated serum homocysteine Heparin-induced thrombocytopenia Other congenital or acquired thrombophilia Stroke (< 1 month) Elective arthroplasty Hip, pelvis, or leg fracture Acute spinal cord injury (< 1 month) Prophylaxis Regimen: Total Risk Factor Score Risk Level Prophylaxis Regimen 0-1 Low Early ambulation 2 Moderate Order ONE of the following: *Sequential Compression Device (SCD) *Heparin 5000 units SQ BID 3-4 Higher Order ONE of the following medications: *Heparin 5000 units SQ TID *Enoxaparin/Lovenox 40 mg SQ daily (WT < 150 kg, CrCl > 30 mL/min) *Enoxaparin/Lovenox 30 mg SQ daily (WT < 150 kg, CrCl > 10-29 mL/min) *Enoxaparin/Lovenox 30 mg SQ BID (WT < 150 kg, CrCl > 30 mL/min) AND/OR *Sequential Compression Device (SCD) 5 or more Highest Order ONE of the following medications: *Heparin 5000 units SQ TID (Preferred with Epidurals) *Enoxaparin/Lovenox 40 mg SQ daily (WT < 150 kg, CrCl > 30 mL/min) *Enoxaparin/Lovenox 30 mg SQ daily (WT < 150 kg, CrCl > 10-29 mL/min) *Enoxaparin/Lovenox 30 mg SQ BID (WT < 150 kg, CrCl > 30 mL/min) AND *Sequential Compression Device (SCD) Assessment and Plan - Assessment (1) Transient cerebral ischemia Code(s): G45.9 - Transient cerebral ischemic attack, unspecified Status: Acute Plan: Patient has no current deficits on exam. No acute intracranial process on head CT without contrast Coagulation profile within normal limits, troponin less than 0.02 Workup for TIA: MR head contrast Carotid doppler Echocardiogram lipid profile ASA 325mg daily Neurology consulted (2) CHF (congestive heart failure) Code(s): I50.9 - Heart failure, unspecified Status: Acute Plan: No signs the patient is in current exacerbation Continue to monitor Echocardiogram from August demonstrates EF of 40-45% (3) Nutrition, metabolism, and development symptoms Code(s): R63.8 - Other symptoms and signs concerning food and fluid intake Status: Acute Plan: Fluids: P.o. for now Electrolytes: Replete as necessary DVT prophylaxis: SCD's (1) Transient cerebral ischemia Qualifiers: Transient cerebral ischemia type: unspecified Qualified Code(s): G45.9 - Transient cerebral ischemic attack, unspecified
[2018-03-05] MEDS ORDERED: Bisacodyl 10 MG Supp RECTAL PRN (14:08)
[2018-03-05 14:22] LABS: Bilirubin,Urine Negative (Negative); Clarity,Urine Clear (Clear); Color,Urine Yellow (Yellw/Straw); Glucose,Urine (UA) Negative (Negative); Hyaline Casts,Urine 1 /lpf (0-3); Leukocyte Esterase,Urine Negative (Negative); Nitrite,Urine Negative (Negative); Specific Gravity,Urine 1.018 (1.002-1.035)
[2018-03-05 17:25] LABS: Chol/HDL Ratio 3.5 Ratio; HDL Cholesterol 45.7 mg/dL (40.0-60.0)
--- NOTE | 2018-03-05 17:26 | MR ---
EXAM DATE: 03/05/2018 5:20 PM EDT AGE/SEX: 88 years / Male INDICATIONS: TIA. Loss of memory. CLINICAL DATA: This is the patient's initial encounter. Patient reports that signs and symptoms have been present for 2 days and indicates a pain score of 1/10. MEDICAL/SURGICAL HISTORY: . Skin cancer. Lithotripsy. Heart valve replacement, Kidney sx. COMPARISON: [facility] [place] HEAD W/O [place]AST, 03/05/2018. . TECHNIQUE: Multiplanar, multisequence examination of the brain was performed without contrast. FINDINGS: Cerebrum: The ventricles are normal for age. No evidence of midline shift, mass lesion, hemorrhage or acute infarction. No extraaxial fluid collections are seen. The pituitary gland and suprasellar cistern are normal in configuration. Scattered tiny foci of chronic hemosiderin deposition seen of [place] th cerebral hemispheres, mostly in the white matter and subcortical regions White Matter: Widely scattered but reasonably symmetric chronic FLAIR signal abnormality seen in the white matter of both cerebral hemispheres. Posterior Fossa: The cerebellum and brainstem are intact. The 4th ventricle is midline. The cerebel lopontine angle is unremarkable. The cerebellar tonsils are normal in position. Diffusion Imaging: There is a 6 mm focus of cortical restricted diffusion of the left parietal lobe, series 7 image 41. Extracranial: Mucoperiosteal thickening seen of the visualized paranasal sinuses. CONCLUSION: 1. 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 2. Chronic white matter ischemic changes. 3. Scattered old parenchymal hemorrhages. 4. Sinusitis. Electronically signed by: Kahlil Sanchez MD 03/05/2018 5:25 PM EDT
--- NOTE | 2018-03-05 17:48 | P.PNFP ---
Subjective Interval history: Attending note: Delightful 88-year-old gentleman admitted with several episodes of self-aware confusion dating over the last several days. Patient has a usual routine of awakening and doing crossword puzzles, he recalled on the evening of 03/03/2018 not being able to "bring up words. Seem to be self-limited, in the evening of the same day he had trouble playing solitary and he did report to the emergency room apparently the following morning, however understood that there would be a delay in being seen and he decided to go back home returning today. No other associated neurologic symptoms, specifically no diplopia, difficulty speaking, one-sided weakness. Has a significant past medical history of an aortic valve replacement bovine, sees Dr. Tremaine Back and by history may have had a complicated deep sternal wound infection, he does require having had hyperbaric oxygen and states that the chest has drained up until recently anteriorly. Currently the patient states is quite comfortable with no neurologic symptoms. Please refer to the resident's history and physical for complete discussion of past medical history , social history and family history. Results - Labs Result diagrams: 03/05/18 12:10 03/05/18 12:10 Abnormal lab results 03/05/18 03/05/18 03/05/18 Range/Units 12:10 12:10 13:55 Plt Count 127 L (150-450) th/mm3 Eos % (Auto) 7.4 H (0.0-4.0) % Eos # (Auto) 0.5 H (0.0-0.4) th/mm3 Chloride 109 H (98-107) meq/L Anion Gap 4 L (5-15) meq/L BUN 22 H (7-18) mg/dL Estimated GFR 56 L (>89) mL/min Troponin I Less than 0.02 L (0.02-0.05) ng/mL Urine Urobilinogen 2.0 H (Less than 2) mg/dL Short CBC 03/05/18 Range/Units 12:10 WBC 6.9 (4.0-11.0) th/mm3 Hgb 14.2 (13.0-17.0) gm/dL Hct 42.5 (39.0-51.0) % Plt Count 127 L (150-450) th/mm3 BMP 03/05/18 12:10 Sodium 142 Potassium 4.6 Chloride 109 H Carbon Dioxide 28.6 BUN 22 H Creatinine 1.23 Calcium 9.4 Cardiac Enzymes 03/05/18 Range/Units 12:10 Total Creatine Kinase 56 (39-308) U/L Troponin I Less than 0.02 L (0.02-0.05) ng/mL Urine 03/05/18 Range/Units 13:55 Urine Color Yellow (Yellw/Straw) Urine Clarity Clear (Clear) Urine pH 6.0 (5.0-8.5) Ur Specific [place] 1.018 (1.002-1.035) Urine Protein Negative (Neg-Trace) mg/dL Urine Glucose (UA) Negative (Negative) mg/dL - Imaging Impressions Head MRI 03/05/18 00:00 CONCLUSION: 1. 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 2. Chronic white matter ischemic changes. 3. Scattered old parenchymal hemorrhages. 4. Sinusitis. Chest X-Ray 03/05/18 11:28 CONCLUSION: Mild bibasilar atelectasis. Head CT 03/05/18 11:28 CONCLUSION: 1. No acute intracranial abnormality demonstrated. 2. Mild chronic white matter changes. 3. Chronic sinus disease. . Physical Exam Vital signs: Vital Signs 03/05/18 11:06 03/05/18 11:28 03/05/18 14:57 Temperature 98.0 F Pulse Rate 76 89 74 Respiratory Rate 16 18 Blood Pressure 164/67 H 140/98 H Pulse Oximetry 97 99 98 03/05/18 16:00 Temperature 97.6 F Pulse Rate 72 Respiratory Rate 28 H Blood Pressure 155/72 H Pulse Oximetry 97 Intake & Output 03/04/18 03/05/18 03/05/18 18:59 06:59 18:59 Weight 92.986 kg Narrative: Vital signs noted. Normotensive. HEENT-nonlocalizing. Neck-bilateral carotid bruits right greater than left. Probably radiating from the aortic area. Cardiac exam-grade 2-3 systolic murmur over the aortic area with a very notable diastolic component. Area of the sternotomy appears healed, patient points to an area that he states was draining although there is no evidence of redness or drainage present, no malodor. Lungs-clear to auscultation. Abdomen-nontender. Soft. Extremities notable for lower extremity edema with some cyanosis associated with the edema although the feet are warm and dry. Difficult to palpate pulses , right ankle/foot appears slightly more edematous than left. Assessment and Plan - Assessment (1) Transient cerebral ischemia Code(s): G45.9 - Transient cerebral ischemic attack, unspecified Status: Acute Plan: Patient has no current deficits on exam. No acute intracranial process on head CT without contrast Coagulation profile within normal limits, troponin less than 0.02 Workup for TIA: MR head contrast Carotid doppler Echocardiogram lipid profile ASA 325mg daily Neurology consulted (2) CHF (congestive heart failure) Code(s): I50.9 - Heart failure, unspecified Status: Acute Plan: No signs the patient is in current exacerbation Continue to monitor Echocardiogram from August demonstrates EF of 40-45% (3) Nutrition, metabolism, and development symptoms Code(s): R63.8 - Other symptoms and signs concerning food and fluid intake Status: Acute Plan: Fluids: P.o. for now Electrolytes: Replete as necessary DVT prophylaxis: SCD's - Assessment and Plan Assessment/plan history consistent with a TIA of cognitive function. No motor or sensory components apparent by history. Currently the patient is asymptomatic. Significant mrmur of /AI appreciated Followed by Dr. Back. Case has been discussed with the resident team, agree with evaluation and diagnostic plans as well as aspirin as ordered. MRI results are pending as is ultrasound of the carotids. Neurology consultation pending. (1) Transient cerebral ischemia Qualifiers: Transient cerebral ischemia type: unspecified Qualified Code(s): G45.9 - Transient cerebral ischemic attack, unspecified
--- NOTE | 2018-03-05 20:26 | US ---
EXAM DATE: 03/05/2018 8:21 PM EDT AGE/SEX: 88 years / Male INDICATIONS: Transient ischemic attack. CLINICAL DATA: This is the patient's initial encounter. Patient reports that signs and symptoms have been present for 1 day and indicates a pain score of 0/10. MEDICAL/SURGICAL HISTORY: . TIA. None. COMPARISON: PO[facility], US ECHOCARDIOGRAM, 05/21/2016. . VELOCITY PARAMETERS: ICA/CCA Ratio: Right 1.88 , Left 0.87 ICA: Right 94 cm/sec, Left 108 cm/sec CCA: Right 50 cm/sec, Left 124 cm/sec ECA: Right 152 cm/sec, Left 199 cm/sec Vertebral: Right 38 cm/sec antegrade, Left 58 cm/sec antegrade FINDINGS: Right Carotid: Mild arteriosclerotic plaque is visualized.The waveforms are within normal limits. Left Carotid: Mild arteriosclerotic plaque is visualized. The waveforms are within normal limits. Other: None. CONCLUSION: 1. Right Internal Carotid Artery: Findings indicate <50% stenosis. 2. Left Internal Carotid Artery: Findings indicate <50% stenosis. 3. Antegrade flow in both vertebral arteries. Electronically signed by: Oscar Bhagat MD 03/05/2018 8:25 PM EDT
--- NOTE | 2018-03-05 21:40 | ECG ---
Date Performed: 03/05/2018 Time Performed: 11:34:55 PTAGE: 88 years EKG: Sinus rhythm WITH FIRST DEGREE AV BLOCK NONSPECIFIC T-WAVE ABNORMALITY ABNORMAL ECG PREVIOUS TRACING : 03/04/2018 14.17 Since the previous tracing, no significant change noted DOCTOR: Gamal Goldman Interpretating Date/Time 03/05/2018 21:38:26
[2018-03-05] MEDS: Senna/Docusate Sodium 8.6/50 MG Tablet PO SCH (22:44)
[2018-03-06 07:27] VITALS: RESP 18
[2018-03-06 07:39] LABS: Hematocrit 38.3 % (39.0-51.0); Hemoglobin 12.9 gm/dL (13.0-17.0); Mean Corpuscular HGB Conc 33.6 % (32.0-36.0); Mean Corpuscular Hemoglobin 30.7 pg (27.0-34.0); Mean Corpuscular Volume 91.2 fL (80.0-100.0); Mean Platelet Volume 9.1 fL (7.0-11.0); Platelet Count 109 th/mm3 (150-450); Red Cell Distribution Width 14.7 % (11.6-17.2); White Blood Count 6.3 th/mm3 (4.0-11.0)
--- NOTE | 2018-03-06 07:54 | MB ---
cc: Dipak Dinero MD, PhD DATE: 03/06/2018 REASON FOR CONSULTATION: Transient ischemic attack. HISTORY OF PRESENT ILLNESS: Mr. Koch is a very nice 88-year-old right-handed white male who was well until Friday evening. He has developed a sharp headache on the top of his head, went to bed and the next morning, he noted difficulty doing crossword puzzles. He had trouble coming up with the correct words whereas in the past, he usually did this readily. That evening, he had trouble playing solitaire, difficulty with getting words out and confusion. By the next day, his symptoms completely resolved. He had no focal weakness or numbness. He presently feels back to his baseline state. PAST MEDICAL HISTORY: History of congestive heart failure, valve replacement, cardiac catheterization, hernia repair, lithotripsy. MEDICATIONS AT HOME: Torsemide. He takes aspirin occasionally, but was not taking aspirin at the time of the events. SOCIAL HISTORY: He does smoke. Drinks alcohol socially. NEUROLOGICAL EXAMINATION: VITAL SIGNS: Blood pressure 130/62, pulse 71 and regular, respirations 16, temperature 97.5 degrees. Higher cortical functions at this time are normal, including speech and comprehension. Cranial nerves are intact. Motor exam is 5/5 strength in all groups. There is no drift. Reflexes are symmetric. Sensory exam intact. There is no Babinski sign present. A CT of the brain, no acute change is present. MRI of the brain shows a very small acute cortical infarct in the left parietal area. He also has some scattered areas of chronic hemorrhage. 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 They appear to be old. No acute hemorrhage identified. Carotid ultrasound less than 50% bilateral stenosis. No hemodynamically significant lesion. EKG, first-degree AV block, sinus rhythm. No atrial fibrillation. LABORATORY DATA: White count 6900, hemoglobin 14.2, hematocrit 42.5%, platelet count 127,000. PT 10.4, INR 1, aPTT 25.2. Sodium is 142, potassium 4.6, chloride 109, CO2 28.6, BUN is 22, creatinine 1.23, GFR is 56, glucose is 82. Cholesterol 160, LDL 87. Urinalysis the pH is 6, specific gravity 1.018, RBC less than 1 WBC less than 1. IMPRESSION: 1. Left hemispheric TIA/small stroke. 2. 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 RECOMMENDATIONS: Recommend aspirin 325 mg daily, followup echocardiogram, monitor cardiac telemetry, rule out atrial fibrillation. If the echo is normal, the patient is evaluate neurologically for discharge on aspirin. 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 Thank you for asking us to see this nice patient. Dipak Dinero MD, PhD [facility] , 07:37 AM , 07:42 AM
[2018-03-06 08:03] LABS: Calcium 8.8 mg/dL (8.5-10.1); Carbon Dioxide 26.3 meq/L (21.0-32.0); Potassium 4.6 meq/L (3.5-5.1)
[2018-03-06] MEDS ORDERED: Torsemide 20 MG Tablet PO SCH (09:00)
[2018-03-06] MEDS ORDERED: Aspirin 325 MG Tablet PO SCH (09:00)
[2018-03-06] MEDS: Senna/Docusate Sodium 8.6/50 MG Tablet PO SCH (09:21)
--- NOTE | 2018-03-06 14:06 | P.PNFP ---
Subjective Interval history: Attending note: Patient seen with resident team, no additional neurologic symptoms. Review findings of the MRI and discussed outpatient workup to be completed for the TIA/small parietal infarct. Appreciate neurology consultation. Refer to resident note for complete discussion of details of today's visit. <Truong Schmidt - 03/06/18 14:18> Patient seen and examined today. Denies nausea, vomiting, fever, chills, abdominal pain, chest pain, shortness of breath, lightheadedness, dizziness. Denies any issues with memory, localized weakness, changes in vision. No other complaints today. Patient believes he is at baseline. <Zacarias Elmore - 03/06/18 14:05> Results - Labs Result diagrams: 03/06/18 06:07 03/06/18 06:07 <Truong Schmidt - 03/06/18 14:18> Abnormal lab results 03/05/18 03/06/18 03/06/18 Range/Units 13:55 06:07 06:07 RBC 4.20 L (4.50-5.90) mil/mm3 Hgb 12.9 L (13.0-17.0) gm/dL Hct 38.3 L (39.0-51.0) % Plt Count 109 L (150-450) th/mm3 Chloride 109 H (98-107) meq/L BUN 21 H (7-18) mg/dL Estimated GFR 64 L (>89) mL/min Urine Urobilinogen 2.0 H (Less than 2) mg/dL Short CBC 03/06/18 Range/Units 06:07 WBC 6.3 (4.0-11.0) th/mm3 Hgb 12.9 L (13.0-17.0) gm/dL Hct 38.3 L (39.0-51.0) % Plt Count 109 L (150-450) th/mm3 BMP 03/06/18 06:07 Sodium 142 Potassium 4.6 Chloride 109 H Carbon Dioxide 26.3 BUN 21 H Creatinine 1.09 Calcium 8.8 Urine 03/05/18 Range/Units 13:55 Urine Color Yellow (Yellw/Straw) Urine Clarity Clear (Clear) Urine pH 6.0 (5.0-8.5) Ur Specific [place] 1.018 (1.002-1.035) Urine Protein Negative (Neg-Trace) mg/dL Urine Glucose (UA) Negative (Negative) mg/dL <Truong Schmidt - 03/06/18 14:18> Abnormal lab results 03/05/18 03/06/18 03/06/18 Range/Units 13:55 06:07 06:07 RBC 4.20 L (4.50-5.90) mil/mm3 Hgb 12.9 L (13.0-17.0) gm/dL Hct 38.3 L (39.0-51.0) % Plt Count 109 L (150-450) th/mm3 Chloride 109 H (98-107) meq/L BUN 21 H (7-18) mg/dL Estimated GFR 64 L (>89) mL/min Urine Urobilinogen 2.0 H (Less than 2) mg/dL Short CBC 03/06/18 Range/Units 06:07 WBC 6.3 (4.0-11.0) th/mm3 Hgb 12.9 L (13.0-17.0) gm/dL Hct 38.3 L (39.0-51.0) % Plt Count 109 L (150-450) th/mm3 BMP 03/06/18 06:07 Sodium 142 Potassium 4.6 Chloride 109 H Carbon Dioxide 26.3 BUN 21 H Creatinine 1.09 Calcium 8.8 Urine 03/05/18 Range/Units 13:55 Urine Color Yellow (Yellw/Straw) Urine Clarity Clear (Clear) Urine pH 6.0 (5.0-8.5) Ur Specific [place] 1.018 (1.002-1.035) Urine Protein Negative (Neg-Trace) mg/dL Urine Glucose (UA) Negative (Negative) mg/dL <Zacarias Elmore - 03/06/18 14:05> - Imaging Impressions Carotid Doppler Study 03/05/18 00:00 CONCLUSION: 1. Right Internal Carotid Artery: Findings indicate <50% stenosis. 2. Left Internal Carotid Artery: Findings indicate <50% stenosis. 3. Antegrade flow in both vertebral arteries. Head MRI 03/05/18 00:00 CONCLUSION: 1. 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 2. Chronic white matter ischemic changes. 3. Scattered old parenchymal hemorrhages. 4. Sinusitis. <Truong Schmidt - 03/06/18 14:18> Impressions Carotid Doppler Study 03/05/18 00:00 CONCLUSION: 1. Right Internal Carotid Artery: Findings indicate <50% stenosis. 2. Left Internal Carotid Artery: Findings indicate <50% stenosis. 3. Antegrade flow in both vertebral arteries. Head MRI 03/05/18 00:00 CONCLUSION: 1. 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 2. Chronic white matter ischemic changes. 3. Scattered old parenchymal hemorrhages. 4. Sinusitis. <Zacarias Elmore - 03/06/18 14:05> Physical Exam Vital signs: Vital Signs 03/05/18 14:57 03/05/18 16:00 03/05/18 19:58 Temperature 97.6 F 97.7 F Pulse Rate 74 72 84 Respiratory Rate 18 28 H 18 Blood Pressure 140/98 H 155/72 H 169/67 H Pulse Oximetry 98 97 96 03/06/18 04:00 03/06/18 07:08 03/06/18 07:25 Temperature 97.5 F L 97.7 F Pulse Rate 71 67 65 Respiratory Rate 16 18 Blood Pressure 130/62 137/60 Pulse Oximetry 95 95 Intake & Output 03/05/18 03/06/18 03/06/18 18:59 06:59 18:59 Intake Total 120 / 120 1000 / 1000 Balance 120 / 120 1000 / 1000 Weight 92.4 kg Intake: IV 1000 / 1000 NS Inj 1,000 ML @ 70 mls/hr IV. 1000 / 1000 CONT .[id number] [facility] Rx#:[id number] Oral 120 / 120 Other: Date of Last Bowel Movement 03/05/18 Weight On Admission 92.98 kg <Truong Schmidt - 03/06/18 14:18> Vital Signs 03/05/18 14:57 03/05/18 16:00 03/05/18 19:58 Temperature 97.6 F 97.7 F Pulse Rate 74 72 84 Respiratory Rate 18 28 H 18 Blood Pressure 140/98 H 155/72 H 169/67 H Pulse Oximetry 98 97 96 03/06/18 04:00 03/06/18 07:08 03/06/18 07:25 Temperature 97.5 F L 97.7 F Pulse Rate 71 67 65 Respiratory Rate 16 18 Blood Pressure 130/62 137/60 Pulse Oximetry 95 95 Intake & Output 03/05/18 03/06/18 03/06/18 18:59 06:59 18:59 Intake Total 120 / 120 1000 / 1000 Balance 120 / 120 1000 / 1000 Weight 92.4 kg Intake: IV 1000 / 1000 NS Inj 1,000 ML @ 70 mls/hr IV. 1000 / 1000 CONT .[id number] [facility] Rx#:[id number] Oral 120 / 120 Other: Date of Last Bowel Movement 03/05/18 Weight On Admission 92.98 kg <Zacarias Elmore - 03/06/18 14:05> Narrative: Vital signs noted. General appearance: Youthful appearing octogenarian. HEENT: Nonlocalizing. Lungs: Clear to auscultation. Cardiac: Regular rhythm, grade 2/6 to 3/6 holosystolic murmur with a diastolic component on the left sternal border Abdomen: Soft, benign. Extremities: Calves are supple, feet are warm and dry. Neurologic: Grossly nonlocalizing. <Truong Schmidt - 03/06/18 14:18> GENERAL: Laying in bed, no acute distress SKIN: Warm and dry. HEAD: Atraumatic. Normocephalic. EYES: Pupils equal and round. No scleral icterus. No injection or drainage. ENT: No nasal bleeding or discharge. Mucous membranes pink and moist. NECK: Trachea midline. No JVD. CARDIOVASCULAR: Regular rate and rhythm. RESPIRATORY: No accessory muscle use. Clear to auscultation. Breath sounds equal bilaterally. GASTROINTESTINAL: Abdomen soft, non-tender, nondistended. Hepatic and splenic margins not palpable. MUSCULOSKELETAL: Extremities without clubbing, cyanosis, or edema. No obvious deformities. NEUROLOGICAL: Awake and alert. No obvious cranial nerve deficits. Motor grossly within normal limits. Five out of 5 muscle strength in the arms and legs. Normal speech. PSYCHIATRIC: Appropriate mood and affect; insight and judgment normal. <Zacarias Elmore - 03/06/18 14:05> Assessment and Plan - Assessment (1) Transient cerebral ischemia Code(s): G45.9 - Transient cerebral ischemic attack, unspecified Status: Acute (2) CHF (congestive heart failure) Code(s): I50.9 - Heart failure, unspecified Status: Acute (3) Nutrition, metabolism, and development symptoms Code(s): R63.8 - Other symptoms and signs concerning food and fluid intake Status: Acute <Truong Schmidt - 03/06/18 14:18> (1) Transient cerebral ischemia Code(s): G45.9 - Transient cerebral ischemic attack, unspecified Status: Acute Plan: Patient has no current deficits on exam. No acute intracranial process on head CT without contrast Coagulation profile within normal limits, troponin less than 0.02 MRI shows focal acute cortical infarct of the left parietal lobe. Chronic Doppler without significant stenosis. Echocardiogram performed today. Workup for TIA: lipid profile ASA 325mg daily (2) CHF (congestive heart failure) Code(s): I50.9 - Heart failure, unspecified Status: Acute Plan: No signs the patient is in current exacerbation Continue to monitor Echocardiogram from August demonstrates EF of 40-45% (3) Nutrition, metabolism, and development symptoms Code(s): R63.8 - Other symptoms and signs concerning food and fluid intake Status: Acute Plan: Fluids: P.o. for now Electrolytes: Replete as necessary DVT prophylaxis: SCD's <Zacarias Elmore - 03/06/18 14:01> - Assessment and Plan Clinical assessment: Patient does have evidence on MRI of a recent acute parietal lobe infarction, he is asymptomatic, is now on aspirin 325 mg daily, may continue workup as an outpatient. Agree with resident's note and evaluation and coordination of care with his family physician and cissp. Truong Schmidt MD 03/06/2018. <Truong Schmidt - 03/06/18 14:18> <Zacarias Elmore - Last Filed: 03/06/18 14:01> (1) Transient cerebral ischemia Qualifiers: Transient cerebral ischemia type: unspecified Qualified Code(s): G45.9 - Transient cerebral ischemic attack, unspecified <Truong Schmidt - Last Filed: 03/06/18 14:18> (1) Transient cerebral ischemia Qualifiers: Transient cerebral ischemia type: unspecified Qualified Code(s): G45.9 - Transient cerebral ischemic attack, unspecified <Zacarias Elmore A - Last Filed: 03/06/18 14:01> (1) Transient cerebral ischemia Qualifiers: Transient cerebral ischemia type: unspecified Qualified Code(s): G45.9 - Transient cerebral ischemic attack, unspecified <Truong Schmidt E - Last Filed: 03/06/18 14:18> (1) Transient cerebral ischemia Qualifiers: Transient cerebral ischemia type: unspecified Qualified Code(s): G45.9 - Transient cerebral ischemic attack, unspecified
[2018-03-06 14:25] VITALS: BP 141/63; PULSE 76; TEMP 98.9; O2SAT 97
--- NOTE | 2018-03-06 14:41 | P.PNADD ---
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 Back and discussed patient's case with him. He reports a past incident which was suspicious for potential A. fib, with this current TIA as well as the surrounding evidence is recommended that we start patient on Xarelto at this time.
--- NOTE | 2018-03-06 17:55 | ECHRPT ---
Indication: CVA/TIA CONCLUSIONS Moderately dilated left ventricle. The left ventricular systolic function is low normal with an estimated ejection fraction in the rang e of 50- 55%. Mild mitral valve regurgitation. Bovine Aortic valve prosthesis noted. Probable normal gradients for bovine aortic valve (peak 24, mean 12). Trace central aortic regurgitation. There is mild tricuspid valve regurgitation. BP: / HR: Rhythm: MEASUREMENTS (Male / Female) Normal Values Technical Quality: 2D ECHO LV Diastolic Diameter PLAX 6.3 cm 4.2 - 5.9 / 3.9 - 5.3 cm LV Systolic Diameter PLAX 4.6 cm IVS Diastolic Thickness 1.0 cm 0.6 - 1.0 / 0.6 - 0.9 cm LVPW Diastolic Thickness 0.9 cm 0.6 - 1.0 / 0.6 - 0.9 cm LV Relative Wall Thickness 0.3 DOPPLER AV Peak Velocity 245.0 cm/s AV Peak Gradient 24.0 mmHg AV Mean Gradient 12.0 mmHg AV Velocity Time Integral 56.6 cm AI Peak Velocity 302.0 cm/s AI Peak Gradient 36.5 mmHg AI Pressure Half Time 331.5 ms Mitral E Point Velocity 104.0 cm/s Mitral A Point Velocity 98.1 cm/s Mitral E to A Ratio 1.1 TR Peak Velocity 274.0 cm/s TR Peak Gradient 30.0 mmHg Right Atrial Pressure 10.0 mmHg Pulmonary Artery Systolic Pressu 40.0 mmHg Right Ventricular Systolic Press 40.0 mmHg FINDINGS LEFT VENTRICLE Moderately dilated left ventricle. Wall thickness is normal. The left ventricular systolic function is low normal with an estimated ejection fraction in the rang e of 50- 55%. RIGHT VENTRICLE Grossly normal LEFT ATRIUM The left atrial size is normal. RIGHT ATRIUM The right atrial size is normal. ATRIAL SEPTUM Normal atrial septal thickness AORTA The aortic root and proximal ascending aorta are normal in size on limited imaging. MITRAL VALVE Mitral annular calcification is present. Mild mitral valve regurgitation. No mitral valve stenosis. AORTIC VALVE Bovine Aortic valve prosthesis noted Trace central aortic regurgitation Probable normal gradients for bovine aortic valve (peak 24, mean 12) TRICUSPID VALVE Grossly normal There is mild tricuspid valve regurgitation. No tricuspid valve stenosis. The estimated pulmonary arterial pressure is 40 mmHg. PULMONARY VALVE No pulmonary valve regurgitation or stenosis. VESSELS The inferior vena cava is normal in size. PERICARDIUM No pericardial effusion. Johnny Dinh DO (Electronically Signed) Final Date:06 March 2018 17:55
== END 2018-03-06 16:30 | disposition home or self-care (01) ==
LOC: NEPE 11:00 → NEPFCDU 11:00 → NEDA 11:00 → NEPFCDU 15:46
PROVIDERS: ADMIT Family Medicine; ATTEND Family Medicine